=== PATIENT | male | born 1950 | race Caucasian/White ===

== ENCOUNTER 2016-11-07 22:21 | Emergency (ER) | payer MEDICARE, OTHER ==
[2016-11-07 22:33] VITALS: RESP 18
[2016-11-07 23:20] LABS: Basophils # (A) 0.1 k/uL (0-0.2); Basophils % (A) 1 %; CH 31.6; CHCM 33.7; Eosinophils # (A) 0.2 k/uL (0-0.7); Eosinophils % (A) 4 %; HCT 38.5 % (39.0-53.0); HDW 2.82; HGB 13.3 gm/dL (13.0-17.5); Luc # (Auto) 0.14; Luc % (Auto) 2; Lymphocytes # (A) 1.6 k/uL (1.0-4.8); Lymphocytes % (A) 24 %; MCH 32.6 pg (25.0-35.0); MCHC 34.5 g/dL (31.0-37.0); MCV 94.5 fL (80.0-100.0); Mean Platelet Volume 7.4; Monocytes # (A) 0.5 k/uL (0-1.0); Monocytes % (A) 8 %; Neutrophils # (A) 3.9 k/uL (1.3-7.7); Neutrophils % (A) 61 %; RBC 4.07 m/uL (4.30-5.90); RDW 14.2 % (11.5-15.5); WBC 6.5 k/uL (3.8-10.6); WBC (Perox) 5.94
[2016-11-07 23:29] LABS: Anion Gap 8 mmol/L; Blood Urea Nitrogen 27 mg/dL (9-20); Carbon Dioxide 27 mmol/L (22-30); Chloride 105 mmol/L (98-107); Glucose 95 mg/dL (74-99); Non-African American GFR(MDRD) 55 (>60 ml/min/1.73 sqM); Potassium 4.6 mmol/L (3.5-5.1); Sodium 140 mmol/L (137-145)
[2016-11-07 23:43] LABS: INR 3.7 (<1.1); Partial Thromboplastin Time 33.5 sec (22.0-30.0); Prothrombin Time 36.4 sec (9.0-12.0)
--- NOTE | 2016-11-07 23:48 | US ---
EXAM: US Duplex Right Lower Extremity Veins CLINICAL HISTORY: Reason: Pain TECHNIQUE: Real-time ultrasound scan of the veins of the right lower extremity with color Doppler flow, spectral waveform analysis and compression. COMPARISON: No relevant prior studies available. FINDINGS: Deep veins: Unremarkable. No DVT in the visualized common femoral, femoral, proximal deep femoral or popliteal veins. The veins are compressible with normal color flow and augmentation. Superficial veins: Unremarkable. No thrombus in the visualized great saphenous vein. IMPRESSION: No evidence of deep venous thrombosis.
--- NOTE | 2016-11-07 23:57 | ED ---
Extremity Problem HPI - General Chief complaint: Extremity Problem,Nontraumatic Stated complaint: R leg swelling Time Seen by Provider: 11/07/16 22:41 Source: patient, RN notes reviewed Mode of arrival: ambulatory Limitations: no limitations - History of Present Illness Initial comments: This a 66-year-old male presents emergency Department chief complaint right leg swelling. Patient states that he has chronic swelling of bilateral lower extremities states that his right leg is more swollen today. He states it is slightly achy. He has had a wound on the anterior hernandes region for the last week or so after she he cut his leg. States is no redness denies any pain associated. No bleeding. Patient's tetanus up-to-date. Patient was advised, emergency department because of increased swelling as concerns for possible DVT. Patient has no history DVT and currently takes Coumadin. - Related Data Home Medications Medication Instructions Recorded Confirmed Atorvastatin [Lipitor] 20 mg PO HS 10/01/13 11/07/16 Calcium Citrate/Vitamin D3 600 mg PO BID 10/01/13 11/07/16 [Calcium Citrate - Vit D3 Tab] Cholecalciferol [Vitamin D3] 2,000 unit PO DAILY 10/01/13 11/07/16 Furosemide [Lasix] 20 mg PO DAILY 10/01/13 11/07/16 Pantoprazole Sodium [Protonix] 40 mg PO BID 10/01/13 11/07/16 Warfarin [Coumadin] 5 mg PO SUTUTHSA 10/01/13 11/07/16 Warfarin [Coumadin] 2.5 mg PO MOWEFR 03/19/14 11/07/16 Ferrous Sulfate [Feosol] 325 mg PO BID 03/31/14 11/07/16 Metoprolol Succinate (ER) [Toprol 25 mg PO HS 11/07/16 11/07/16 Xl] Metoprolol Succinate (ER) [Toprol 50 mg PO DAILY 11/07/16 11/07/16 Xl] Allergies Allergy/AdvReac Type Severity Reaction Status Date / Time Penicillins Allergy Rash/Hives Verified 11/07/16 22:39 Review of Systems ROS Statement: Those systems with pertinent positive or pertinent negative responses have been documented in the HPI. ROS Other: All systems not noted in ROS Statement are negative. Past Medical History Past Medical History: GERD/Reflux, Hyperlipidemia, Osteoarthritis (OA), Renal Disease Additional Past Medical History / Comment(s): chronic swelling to bilat legs History of Any Multi-Drug Resistant Organisms: None Reported Past Surgical History: AICD, Bariatric Surgery, Cholecystectomy, Ear Surgery, Orthopedic Surgery Additional Past Surgical History / Comment(s): STATES HAD BILE DUCT LACERATED DURING CHOLECYSTECTOMY, eye surg. as a child, hx stomach stapling 1988, gastric bypass 10/2001, LOYD KNEES REPLACED, CURRENT PACEMAKER IS THIRD PACEMAKER PT HAS HAD, screw in right foot Past Anesthesia/Blood Transfusion Reactions: No Reported Reaction Type of Cardiac Device: Permanent Pacemaker Device Placement Date:: June 2013 @[facility] Past Psychological History: No Psychological Hx Reported Smoking Status: Never smoker Past Alcohol Use History: Occasional Past Drug Use History: None Reported - Past Family History Sister(s) Family Medical History: Cancer Mother Family Medical History: No Reported History General Exam Limitations: no limitations General appearance: alert, in no apparent distress Respiratory exam: Present: normal lung sounds bilaterally. Absent: respiratory distress, wheezes, rales, rhonchi, stridor Cardiovascular Exam: Present: regular rate, normal rhythm, normal heart sounds. Absent: systolic murmur, diastolic murmur, rubs, gallop, clicks GI/Abdominal exam: Present: normal bowel sounds Extremities exam: Present: other (Bilateral lower extremity edema noted 2+, greater on the right. There is a small 0.5 cm open wound to the right hernandes there is venous stasis changes to bilateral lower extremities pedal pulses are equal bilaterally) Skin exam: Present: warm, dry Course Vital Signs 11/07/16 11/07/16 22:28 23:47 Temperature 97.6 F 97.6 F Pulse Rate 62 62 Respiratory 18 18 Rate Blood Pressure 142/71 111/56 O2 Sat by Pulse 99 99 Oximetry Medical Decision Making - Medical Decision Making 66-year-old male present emergency for right leg swelling. There is no evidence of acute DVT. Patient does not have an elevated BNP. He does have a slight increase in creatinine from his normal baseline. Patient is currently on Lasix. Patient swelling is most likely related to his ambulation today as there was more than his usual. He does have chronic swelling of his lower extremities. Patient will follow with primary care physician return parameters were discussed. - Lab Data Result diagrams: 11/07/16 23:04 11/07/16 23:04 Lab Results 07/03/1611/07/16 11/07/16 Range/Units 23:04 23:04 23:04 WBC 6.5 (3.8-10.6) k/uL RBC 4.07 L (4.30-5.90) m/uL Hgb 13.3 (13.0-17.5) gm/dL Hct 38.5 L (39.0-53.0) % MCV 94.5 (80.0-100.0) fL MCH 32.6 (25.0-35.0) pg MCHC 34.5 (31.0-37.0) g/dL RDW 14.2 (11.5-15.5) % Plt Count 199 (150-450) k/uL Neutrophils % 61 % Lymphocytes % 24 % Monocytes % 8 % Eosinophils % 4 % Basophils % 1 % Neutrophils # 3.9 (1.3-7.7) k/uL Lymphocytes # 1.6 (1.0-4.8) k/uL Monocytes # 0.5 (0-1.0) k/uL Eosinophils # 0.2 (0-0.7) k/uL Basophils # 0.1 (0-0.2) k/uL PT (9.0-12.0) sec INR (<1.1) APTT (22.0-30.0) sec Sodium 140 (137-145) mmol/L Potassium 4.6 (3.5-5.1) mmol/L Chloride 105 (98-107) mmol/L Carbon Dioxide 27 (22-30) mmol/L Anion Gap 8 mmol/L BUN 27 H (9-20) mg/dL Creatinine 1.30 H (0.66-1.25) mg/dL Est GFR (MDRD) Af Amer >60 (>60 ml/min/1.73 sqM) Est GFR (MDRD) Non-Af 55 (>60 ml/min/1.73 sqM) Glucose 95 (74-99) mg/dL Calcium 8.0 L (8.4-10.2) mg/dL NT-Pro-B Natriuret Pep 605 pg/mL 11/07/16 Range/Units 23:04 WBC (3.8-10.6) k/uL RBC (4.30-5.90) m/uL Hgb (13.0-17.5) gm/dL Hct (39.0-53.0) % MCV (80.0-100.0) fL MCH (25.0-35.0) pg MCHC (31.0-37.0) g/dL RDW (11.5-15.5) % Plt Count (150-450) k/uL Neutrophils % % Lymphocytes % % Monocytes % % Eosinophils % % Basophils % % Neutrophils # (1.3-7.7) k/uL Lymphocytes # (1.0-4.8) k/uL Monocytes # (0-1.0) k/uL Eosinophils # (0-0.7) k/uL Basophils # (0-0.2) k/uL PT 36.4 H (9.0-12.0) sec INR 3.7 (<1.1) APTT 33.5 H (22.0-30.0) sec Sodium (137-145) mmol/L Potassium (3.5-5.1) mmol/L Chloride (98-107) mmol/L Carbon Dioxide (22-30) mmol/L Anion Gap mmol/L BUN (9-20) mg/dL Creatinine (0.66-1.25) mg/dL Est GFR (MDRD) Af Amer (>60 ml/min/1.73 sqM) Est GFR (MDRD) Non-Af (>60 ml/min/1.73 sqM) Glucose (74-99) mg/dL Calcium (8.4-10.2) mg/dL NT-Pro-B Natriuret Pep pg/mL Disposition Clinical Impression: Right leg swelling, Leg wound, right Disposition: HOME SELF-CARE Condition: Stable Instructions: Leg Edema (ED) Additional Instructions: Please return to the Emergency Department if symptoms worsen or any other concerns. Referrals: Noe Campbell MD [Primary Care Provider] - 1-2 days Time of Disposition: 00:12
[2016-11-08 00:30] VITALS: BP 111/54; PULSE 59; TEMP 97.3
== END 2016-11-08 00:29 | disposition home or self-care (01) ==
LOC: EC 22:21
DX: M79.89 Other specified soft tissue disorders (principal); S81.801A Unspecified open wound, right lower leg, initial encounter; I87.8 Other specified disorders of veins; R79.89 Other specified abnormal findings of blood chemistry; R60.0 Localized edema; N28.9 Disorder of kidney and ureter, unspecified; K21.9 Gastro-esophageal reflux disease without esophagitis; Z79.01 Long term (current) use of anticoagulants; Z79.899 Other long term (current) drug therapy; Z88.0 Allergy status to penicillin; Z98.890 Other specified postprocedural states; W45.8XXA Other foreign body or object entering through skin, initial encounter
CPT/HCPCS: 36415; 80048; 83880; 85025; 85610; 85730; 99284

== ENCOUNTER → 2017-01-09 | Outpatient (CLI) | payer MEDICARE, OTHER ==
[2017-01-09 09:17] LABS: Basophils % (A) 0 %; CHCM 32.6; Eosinophils # (A) 0.2 k/uL (0-0.7); Eosinophils % (A) 3 %; HDW 2.75; HGB 12.8 gm/dL (13.0-17.5); Luc # (Auto) 0.14; Luc % (Auto) 3; Lymphocytes % (A) 18 %; MCH 31.6 pg (25.0-35.0); MCV 98.5 fL (80.0-100.0); Mean Platelet Volume 7.8; Monocytes # (A) 0.4 k/uL (0-1.0); Monocytes % (A) 8 %; Neutrophils # (A) 3.7 k/uL (1.3-7.7); Neutrophils % (A) 68 %; RBC 4.06 m/uL (4.30-5.90); RDW 14.6 % (11.5-15.5); WBC 5.5 k/uL (3.8-10.6); WBC (Perox) 5.58
[2017-01-09 10:56] LABS: Erythrocyte Sedimentation Rate 7 mm/hr (0-15)
[2017-01-09 11:25] LABS: Prostate Specific Antigen 0.63 ng/mL (0.00-4.00)
[2017-01-09 11:34] LABS: Vitamin B12 325 pg/mL
[2017-01-09 11:48] LABS: ALT 31 U/L (21-72); AST 21 U/L (17-59); Alkaline Phosphatase 87 U/L (38-126); Anion Gap 6 mmol/L; Blood Urea Nitrogen 18 mg/dL (9-20); Carbon Dioxide 27 mmol/L (22-30); Chloride 108 mmol/L (98-107); Cholesterol 122 mg/dL (<200); Creatine Kinase 86 U/L (55-170); Glucose 96 mg/dL (74-99); HDL Cholesterol 59 mg/dL (40-60); Non-African American GFR(MDRD) >60 (>60 ml/min/1.73 sqM); Potassium 4.2 mmol/L (3.5-5.1); Sodium 141 mmol/L (137-145); Total Bilirubin 0.8 mg/dL (0.2-1.3); Total Protein 5.8 g/dL (6.3-8.2)
[2017-01-09 18:45] LABS: Hemoglobin A1C 5.6 % (4.2-6.1)
== END | disposition home or self-care (01) ==
LOC: LABWHC1 08:54
PROVIDERS: ATTEND Internal Medicine
DX: N40.0 Benign prostatic hyperplasia without lower urinary tract symptoms (principal); E87.8 Other disorders of electrolyte and fluid balance, not elsewhere classified; E78.5 Hyperlipidemia, unspecified; I10 Essential (primary) hypertension; E03.9 Hypothyroidism, unspecified; E55.9 Vitamin D deficiency, unspecified; E53.9 Vitamin B deficiency, unspecified; R00.1 Bradycardia, unspecified; M81.0 Age-related osteoporosis without current pathological fracture; E66.9 Obesity, unspecified
CPT/HCPCS: 36415; 80053; 80061; 82306; 82550; 82607; 83036; 84153; 84443; 85025; 85652; 86140

== ENCOUNTER → 2017-10-15 | Outpatient (CLI) | payer MEDICARE, OTHER ==
[2017-10-15 11:37] LABS: Calcium 8.2 mg/dL (8.4-10.2); Magnesium 2.1 mg/dL (1.6-2.3); Phosphorus 3.3 mg/dL (2.5-4.5); Potassium 4.3 mmol/L (3.5-5.1)
--- NOTE | 2017-10-15 13:16 | XR ---
EXAM TYPE: LUMBAR SPINE X RAY SERIES COMPARISON: NONE HISTORY: Pain TECHNIQUE: 3 views are submitted. FINDINGS: Alignment is anatomic. The pedicles are intact. The transverse processes are intact. There is no s pondylolysis or spondylolisthesis. Postsurgical changes in the upper abdomen. There is diffuse osteo penia and multilevel severe degenerative disc disease and facet arthropathy with most marked findings at L3-S1. IMPRESSION: 1. Severe multilevel degenerative disc disease with facet arthropathy.
== END | disposition home or self-care (01) ==
LOC: LABWHC1 10:28
PROVIDERS: ATTEND Internal Medicine
DX: M51.36 Other intervertebral disc degeneration, lumbar region (principal); M46.96 Unspecified inflammatory spondylopathy, lumbar region; M62.838 Other muscle spasm; Z98.890 Other specified postprocedural states
CPT/HCPCS: 36415; 72100; 80048; 82306; 83735; 84100

== ENCOUNTER → 2018-01-22 | Outpatient (CLI) | payer MEDICARE, OTHER ==
[2018-01-22 09:57] LABS: Basophils % (A) 0 %; Eosinophils # (A) 0.2 k/uL (0-0.7); Eosinophils % (A) 4 %; HCT 37.4 % (39.0-53.0); HGB 11.9 gm/dL (13.0-17.5); Hypochromasia Slight; Lymphocytes % (A) 21 %; MCH 30.3 pg (25.0-35.0); MCHC 31.7 g/dL (31.0-37.0); MCV 95.5 fL (80.0-100.0); Mean Platelet Volume 7.5; Monocytes # (A) 0.4 k/uL (0-1.0); Monocytes % (A) 8 %; Neutrophils % (A) 65 %; Platelet Count 170 k/uL (150-450); RBC 3.92 m/uL (4.30-5.90); RDW 14.4 % (11.5-15.5); WBC 4.7 k/uL (3.8-10.6)
[2018-01-22 10:40] LABS: ALT 32 U/L (21-72); AST 33 U/L (17-59); Albumin 2.9 g/dL (3.5-5.0); Alkaline Phosphatase 68 U/L (38-126); Anion Gap 4 mmol/L; Blood Urea Nitrogen 19 mg/dL (9-20); Calcium 7.6 mg/dL (8.4-10.2); Carbon Dioxide 30 mmol/L (22-30); Chloride 109 mmol/L (98-107); Cholesterol 116 mg/dL (<200); Creatine Kinase 162 U/L (55-170); Glucose 88 mg/dL (74-99); HDL Cholesterol 58 mg/dL (40-60); LDL Cholesterol,Calculated 49 mg/dL (0-99); Magnesium 2.1 mg/dL (1.6-2.3); Potassium 4.2 mmol/L (3.5-5.1); Sodium 143 mmol/L (137-145); Total Bilirubin 0.7 mg/dL (0.2-1.3); Total Protein 5.6 g/dL (6.3-8.2); Triglycerides 46 mg/dL (<150); Uric Acid 6.7 mg/dL (3.5-8.5)
[2018-01-22 11:33] LABS: C Reactive Protein <5.0 mg/L (<10.0)
[2018-01-22 12:01] LABS: Prostate Specific Antigen 0.67 ng/mL (0.00-4.00)
[2018-01-22 19:04] LABS: Hemoglobin A1C 5.7 % (4.0-6.0)
== END | disposition home or self-care (01) ==
LOC: LABWHC1 08:10
PROVIDERS: ATTEND Internal Medicine
DX: N40.0 Benign prostatic hyperplasia without lower urinary tract symptoms (principal); E55.9 Vitamin D deficiency, unspecified; E03.9 Hypothyroidism, unspecified; E78.5 Hyperlipidemia, unspecified; I10 Essential (primary) hypertension; M10.9 Gout, unspecified; E87.8 Other disorders of electrolyte and fluid balance, not elsewhere classified; R73.9 Hyperglycemia, unspecified
CPT/HCPCS: 36415; 80053; 80061; 82272; 82306; 82550; 83036; 83735; 84153; 84443; 84550; 85025; 86140

== ENCOUNTER → 2018-05-01 | Outpatient (CLI) | payer MEDICARE ==
[2018-05-01 12:37] LABS: Basophils % (A) 0 %; Eosinophils # (A) 0.2 k/uL (0-0.7); Eosinophils % (A) 3 %; HCT 41.7 % (39.0-53.0); HGB 13.3 gm/dL (13.0-17.5); Hypochromasia Slight; Lymphocytes % (A) 13 %; MCH 30.3 pg (25.0-35.0); MCHC 31.9 g/dL (31.0-37.0); MCV 95.2 fL (80.0-100.0); Mean Platelet Volume 7.2; Monocytes # (A) 0.4 k/uL (0-1.0); Monocytes % (A) 5 %; Neutrophils # (A) 6.1 k/uL (1.3-7.7); Neutrophils % (A) 77 %; Platelet Count 226 k/uL (150-450); RBC 4.39 m/uL (4.30-5.90); RDW 14.6 % (11.5-15.5); WBC 7.8 k/uL (3.8-10.6)
--- NOTE | 2018-05-01 13:00 | XR ---
EXAMINATION TYPE: XR chest 2V DATE OF EXAM: 05/01/2018 COMPARISON: 08/21/2011 TECHNIQUE: PA and lateral views submitted. HISTORY: Pain FINDINGS: No sizable pneumothorax. There is left lower lobe consolidation and small effusion. No overt failure. Heart is mildly prominent atherosclerotic change aorta. Cardiac device noted. Hypertrophic changes o f the vertebral column with degenerative change noted. IMPRESSION: 1. Left lower lobe infiltrate and small effusion.
--- NOTE | 2018-05-01 13:02 | XR ---
EXAMINATION TYPE: XR ribs LT DATE OF EXAM: 05/01/2018 COMPARISON: NONE HISTORY: Pain TECHNIQUE: 4 views submitted FINDINGS: Left lower lobe consolidation and small pleural effusion. There is a deformity involving th e anterior margin of the left 8th rib. Calcifications in the upper quadrant of the abdomen noted. IMPRESSION: 1. Deformity involving the anterolateral margin left eighth rib suspicious for fracture. 2. No sizable pneumothorax. 3. Left lower lobe consolidation and small pleural effusion.
== END | disposition home or self-care (01) ==
LOC: RADXRMAIN 11:30
PROVIDERS: ATTEND Internal Medicine
DX: J90 Pleural effusion, not elsewhere classified (principal); J18.1 Lobar pneumonia, unspecified organism; J12.9 Viral pneumonia, unspecified; J06.9 Acute upper respiratory infection, unspecified; R91.8 Other nonspecific abnormal finding of lung field; R52 Pain, unspecified
CPT/HCPCS: 36415; 71046; 85025

== ENCOUNTER → 2018-05-13 | Outpatient (CLI) | payer MEDICARE ==
--- NOTE | 2018-05-13 12:49 | XR ---
EXAMINATION TYPE: XR chest 2V DATE OF EXAM: 05/13/2018 COMPARISON: 05/01/2018 TECHNIQUE: PA and lateral views submitted. HISTORY: Follow-up pneumonia FINDINGS: Cardiac device is seen in the heart size stable. No pneumothorax. There is minimal subsegmental conso lidation small left effusion. The right lung is clear. No overt failure. Hypertrophic change of the s pine. Surgical clips in the abdomen. Rib deformity seen by previous rib series x-rays less well ident ified by standard chest x-ray. IMPRESSION: 1. There is interval near improvement of left lower lobe infiltrate and small effusion.
== END ==
LOC: RADXRMAIN 12:21
PROVIDERS: ATTEND Internal Medicine
DX: J90 Pleural effusion, not elsewhere classified (principal)
CPT/HCPCS: 71046

== ENCOUNTER → 2019-01-29 | Outpatient (CLI) | payer MEDICARE ==
[2019-01-29 08:06] LABS: Basophils % (A) 1 %; Eosinophils # (A) 0.2 k/uL (0-0.7); Eosinophils % (A) 4 %; HGB 10.9 gm/dL (13.0-17.5); Hypochromasia Slight; Lymphocytes % (A) 21 %; MCH 28.5 pg (25.0-35.0); MCHC 30.4 g/dL (31.0-37.0); MCV 93.8 fL (80.0-100.0); Mean Platelet Volume 6.8; Monocytes # (A) 0.4 k/uL (0-1.0); Monocytes % (A) 8 %; Neutrophils % (A) 64 %; Platelet Count 186 k/uL (150-450); RBC 3.84 m/uL (4.30-5.90); RDW 14.9 % (11.5-15.5); WBC 4.7 k/uL (3.8-10.6)
[2019-01-29 09:45] LABS: Erythrocyte Sedimentation Rate 8 mm/hr (0-15)
[2019-01-29 18:08] LABS: ALT 18 U/L (10-49); AST 26 U/L (14-35); African American GFR (CKD) 70.6 (60.0-200.0); Albumin/Globulin Ratio 1.94 (1.60-3.17); Alkaline Phosphatase 77 U/L (41-126); BUN/Creat Ratio 18.33 Ratio (12.00-20.00); C Reactive Protein <0.4 mg/dL (0.0-0.8); Calcium 7.9 mg/dL (8.7-10.3); Carbon Dioxide 28.4 mmol/L (21.6-31.8); Chloride 107 mmol/L (96-109); Chol/HDL Ratio 2.39; Cholesterol 122 mg/dL (0-200); Creatine Kinase 160 U/L (35-257); Globulin 1.8 g/dL (1.6-3.3); Glucose 96 mg/dL (70-110); Magnesium 2.3 mg/dL (1.5-2.4); Potassium 4.1 mmol/L (3.5-5.5); Sodium 143 mmol/L (135-145); Total Bilirubin 0.6 mg/dL (0.3-1.2); Total Protein 5.3 g/dL (6.2-8.2); Triglycerides <50.0 mg/dL (0.0-149.0)
== END | disposition home or self-care (01) ==
LOC: LABWHC1 07:06
PROVIDERS: ATTEND Internal Medicine
DX: D64.9 Anemia, unspecified (principal); N40.0 Benign prostatic hyperplasia without lower urinary tract symptoms; E78.5 Hyperlipidemia, unspecified; I10 Essential (primary) hypertension; E03.9 Hypothyroidism, unspecified; Z95.0 Presence of cardiac pacemaker
CPT/HCPCS: 36415; 80053; 80061; 82550; 83735; 84153; 84443; 85025; 85652; 86140

== ENCOUNTER → 2019-05-01 | Outpatient (CLI) | payer MEDICARE ==
[2019-05-01 13:22] LABS: Ionized Calcium 4.3 mg/dL (4.5-5.3)
== END | disposition home or self-care (01) ==
LOC: LABWHC1 12:34
PROVIDERS: ATTEND Internal Medicine Clinical Cardiac Electrophysiology
DX: E83.51 Hypocalcemia (principal)
CPT/HCPCS: 36415; 82306; 82310; 82330

== ENCOUNTER → 2019-05-08 | Outpatient (CLI) | payer MEDICARE ==
--- NOTE | 2019-05-08 12:46 | XR ---
EXAM TYPE: LUMBAR SPINE X RAY SERIES COMPARISON: 10/15/2017 HISTORY: Pain TECHNIQUE: 4 views are submitted. FINDINGS: Alignment is anatomic. The pedicles are intact. The transverse processes are intact. There is surg ical change in the abdomen. Diffuse osteopenia and severe multilevel degenerative disc disease and fa cet arthropathy at levels L3-S1. Mild to moderate changes at the remaining levels. Anterior hypertrop hic spurring at all levels. Vascular calcifications noted. IMPRESSION: 1. Multilevel severe degenerative disc disease and facet arthropathy. Correlate with MRI.
--- NOTE | 2019-05-08 12:47 | XR ---
EXAMINATION TYPE: XR thoracic spine complete DATE OF EXAM: 05/08/2019 COMPARISON: NONE HISTORY: Pain Alignment is anatomic. There is no compression deformities. Diffuse osteopenia. Cardiac device noted . There is hypertrophic spurs and moderate degenerative disc disease at all levels. No compression de formities. Significant degenerative disc disease lower cervical spine incidentally noted. Surgical ch alicia in the upper abdomen. IMPRESSION: 1. Diffuse osteopenia with multilevel moderate to severe degenerative disc disease. Flowing anterior osteophytes are seen which can be associated with hypertrophic degenerative changes or diffuse idiopa thic skeletal hyperostosis.
[2019-05-08 17:24] LABS: African American GFR (CKD) 58.2 (60.0-200.0); Anion Gap 9.9 mmol/L (4.00-12.00); BUN/Creat Ratio 26.43 Ratio (12.00-20.00); Calcium 8.2 mg/dL (8.7-10.3); Carbon Dioxide 29.1 mmol/L (21.6-31.8); Magnesium 2.3 mg/dL (1.5-2.4); Non-African American GFR(CKD) 50.2 (60.0-200.0); Potassium 4.1 mmol/L (3.5-5.5)
== END | disposition home or self-care (01) ==
LOC: LABWHC1 10:54
PROVIDERS: ATTEND Internal Medicine
DX: M51.36 Other intervertebral disc degeneration, lumbar region (principal); M46.96 Unspecified inflammatory spondylopathy, lumbar region; M51.34 Other intervertebral disc degeneration, thoracic region; M81.0 Age-related osteoporosis without current pathological fracture
CPT/HCPCS: 36415; 72072; 72110; 80048; 83735

== ENCOUNTER → 2019-08-04 | Outpatient (CLI) | payer MEDICARE ==
[2019-08-04 16:07] LABS: African American GFR (CKD) 70.1 (60.0-200.0); BUN/Creat Ratio 33.33 Ratio (12.00-20.00); Calcium 8.2 mg/dL (8.7-10.3); Carbon Dioxide 29.1 mmol/L (21.6-31.8); Chloride 102 mmol/L (96-109); Glucose 92 mg/dL (70-110); Non-African American GFR(CKD) 60.5 (60.0-200.0); Potassium 3.7 mmol/L (3.5-5.5); Sodium 143 mmol/L (135-145)
== END | disposition home or self-care (01) ==
LOC: LABWHC1 08:31
PROVIDERS: ATTEND Internal Medicine
DX: E87.8 Other disorders of electrolyte and fluid balance, not elsewhere classified (principal); N18.3 Chronic kidney disease, stage 3 (moderate); R82.4 Acetonuria
CPT/HCPCS: 36415; 80048; 82009

== ENCOUNTER → 2020-05-10 | Outpatient (CLI) | payer MEDICARE ==
[2020-05-10 12:44] LABS: Basophils % (A) 1 %; Eosinophils # (A) 0.1 k/uL (0-0.7); Eosinophils % (A) 2 %; HCT 36.7 % (39.0-53.0); HGB 11.7 gm/dL (13.0-17.5); Hypochromasia Slight; Lymphocytes # (A) 1.1 k/uL (1.0-4.8); Lymphocytes % (A) 21 %; MCH 28.9 pg (25.0-35.0); MCHC 31.9 g/dL (31.0-37.0); MCV 90.7 fL (80.0-100.0); Mean Platelet Volume 6.9; Monocytes # (A) 0.3 k/uL (0-1.0); Monocytes % (A) 6 %; Neutrophils # (A) 3.5 k/uL (1.3-7.7); Neutrophils % (A) 69 %; Platelet Count 254 k/uL (150-450); RBC 4.04 m/uL (4.30-5.90); RDW 15.3 % (11.5-15.5); WBC 5.2 k/uL (3.8-10.6)
[2020-05-10 14:06] LABS: Erythrocyte Sedimentation Rate 8 mm/hr (0-15)
[2020-05-10 21:21] LABS: ALT 23 U/L (10-49); AST 22 U/L (14-35); African American GFR (CKD) 77.3 (60.0-200.0); Albumin/Globulin Ratio 1.73 (1.60-3.17); Alkaline Phosphatase 75 U/L (41-126); BUN/Creat Ratio 24.55 Ratio (12.00-20.00); Calcium 8.2 mg/dL (8.7-10.3); Carbon Dioxide 30.2 mmol/L (21.6-31.8); Chloride 107 mmol/L (96-109); Globulin 2.2 g/dL (1.6-3.3); Glucose 91 mg/dL (70-110); Non-African American GFR(CKD) 66.7 (60.0-200.0); Potassium 4.2 mmol/L (3.5-5.5); Sodium 144 mmol/L (135-145); Total Bilirubin 0.7 mg/dL (0.3-1.2)
[2020-05-10 21:22] LABS: C Reactive Protein <0.4 mg/dL (0.0-0.8); Chol/HDL Ratio 2.79; Cholesterol 134 mg/dL (0-200); Creatine Kinase 83 U/L (35-257); LDL Cholesterol,Calculated 72.4 mg/dL (0.0-131.0); Magnesium 2.2 mg/dL (1.5-2.4); Prostate Specific Antigen 0.5 ng/mL (0.0-6.5)
== END | disposition home or self-care (01) ==
LOC: LABWHC1 10:28
PROVIDERS: ATTEND Internal Medicine Clinical Cardiac Electrophysiology
DX: Z00.00 Encounter for general adult medical examination without abnormal findings (principal); D64.9 Anemia, unspecified; I10 Essential (primary) hypertension; E03.9 Hypothyroidism, unspecified; N40.0 Benign prostatic hyperplasia without lower urinary tract symptoms; E78.5 Hyperlipidemia, unspecified; E87.2 Acidosis; E55.9 Vitamin D deficiency, unspecified
CPT/HCPCS: 36415; 80053; 80061; 82306; 82550; 83735; 84153; 84443; 85025; 85652; 86140

== ENCOUNTER → 2021-05-10 | Outpatient (CLI) | payer MEDICARE ==
[2021-05-10 15:16] LABS: Basophils # (A) 0.05 X 10*3/uL (0.00-0.10); Eosinophils # (A) 0.13 X 10*3/uL (0.04-0.35); Eosinophils % (A) 2.5 %; HCT 34.7 % (39.6-50.0); HGB 9.7 g/dL (13.0-17.0); Lymphocytes # (A) 1.22 X 10*3/uL (0.90-5.00); Lymphocytes % (A) 23.5 %; MCH 23.5 pg (27.0-32.0); MCV 84.2 fL (80.0-97.0); Mean Platelet Volume 9.2 fL (9.5-12.2); Monocytes # (A) 0.63 X 10*3/uL (0.20-1.00); Monocytes % (A) 12.1 %; Neutrophils # (A) 3.16 X 10*3/uL (1.80-7.70); Neutrophils % (A) 60.7 %; Platelet Count 293 X 10*3/uL (140-440); RBC 4.12 X 10*6/uL (4.40-5.60); RDW 16.8 % (11.5-14.5)
[2021-05-10 15:17] LABS: INR 2.01 (0.90-1.11); Prothrombin Time 21.4 sec (9.9-11.9)
[2021-05-10 15:20] LABS: ALT 17 U/L (10-49); AST 22 U/L (14-35); African American GFR (CKD) 80.3 (60.0-200.0); Albumin 3.9 g/dL (3.8-4.9); Albumin/Globulin Ratio 1.52 (1.60-3.17); Alkaline Phosphatase 86 U/L (41-126); BUN/Creat Ratio 20.47 Ratio (12.00-20.00); Blood Urea Nitrogen 21.7 mg/dL (9.0-27.0); Calcium 8.1 mg/dL (8.7-10.3); Chloride 104 mmol/L (96-109); Creatine Kinase 105 U/L (35-257); Globulin 2.5 g/dL (1.6-3.3); Glucose 100 mg/dL (70-110); Magnesium 2.4 mg/dL (1.5-2.4); Non-African American GFR(CKD) 69.3 (60.0-200.0); Phosphorus 3.7 mg/dL (2.4-5.1); Potassium 3.7 mmol/L (3.5-5.5); Sodium 143 mmol/L (135-145); Total Protein 6.4 g/dL (6.2-8.2); Uric Acid 6.7 mg/dL (3.7-8.7)
[2021-05-10 16:53] LABS: Erythrocyte Sedimentation Rate 21 mm/Hr (0-20)
[2021-05-10 17:21] LABS: C Reactive Protein <0.30 mg/dL (0.00-0.80)
[2021-05-10 20:04] LABS: Estimated Average Glucose 126
[2021-05-11 11:20] LABS: Microalbumin Creatinine Ratio <30 mg/g Creat (0-30)
== END | disposition home or self-care (01) ==
LOC: LABWHC1 10:19
PROVIDERS: ATTEND Internal Medicine
DX: Z00.00 Encounter for general adult medical examination without abnormal findings (principal); D64.9 Anemia, unspecified; N40.0 Benign prostatic hyperplasia without lower urinary tract symptoms; M10.9 Gout, unspecified; E78.5 Hyperlipidemia, unspecified; E11.65 Type 2 diabetes mellitus with hyperglycemia; E03.9 Hypothyroidism, unspecified; E55.9 Vitamin D deficiency, unspecified
CPT/HCPCS: 36415; 80053; 80061; 82043; 82550; 82570; 83036; 83721; 83735; 84100; 84153; 84443; 84550; 85025; 85610; 85652; 86140

== ENCOUNTER → 2021-05-11 | Outpatient (CLI) | payer MEDICARE | END | disposition home or self-care (01) | LOC: LABWHC1 09:21 | PROVIDERS: ATTEND Internal Medicine | DX: Z53.9 Procedure and treatment not carried out, unspecified reason (principal) ==

== ENCOUNTER → 2021-05-13 | Outpatient (CLI) | payer MEDICARE ==
[2021-05-13 15:36] LABS: % Iron Saturation 5.76 (15.00-50.00); Folate, Serum 10.4 ng/mL (4.40-31.00)
== END | disposition home or self-care (01) ==
LOC: LABWHC1 09:18
PROVIDERS: ATTEND Internal Medicine
DX: D64.9 Anemia, unspecified (principal); E53.8 Deficiency of other specified B group vitamins
CPT/HCPCS: 36415; 82272; 82607; 82746; 83540; 83550; 83921

== ENCOUNTER → 2021-08-31 | Outpatient (CLI) | payer MEDICARE ==
[2021-08-31 18:25] LABS: Basophils # (A) 0.05 X 10*3/uL (0.00-0.10); Basophils % (A) 0.9 %; Eosinophils # (A) 0.11 X 10*3/uL (0.04-0.35); Eosinophils % (A) 2.1 %; HCT 31.3 % (39.6-50.0); HGB 8.8 g/dL (13.0-17.0); Immature Grans, Automated 0.2 %; Lymphocytes # (A) 1.12 X 10*3/uL (0.90-5.00); MCH 23.4 pg (27.0-32.0); MCHC 28.1 g/dL (32.0-37.0); MCV 83.2 fL (80.0-97.0); Mean Platelet Volume 9.8 fL (9.5-12.2); Monocytes # (A) 0.48 X 10*3/uL (0.20-1.00); NRBC Per 100 WBC 0 /100 WBCS (0.0-0.0); Neutrophils # (A) 3.57 X 10*3/uL (1.80-7.70); Neutrophils % (A) 66.8 %; Platelet Count 356 X 10*3/uL (140-440); RBC 3.76 X 10*6/uL (4.40-5.60); RDW 18.7 % (11.5-14.5); WBC 5.34 X 10*3/uL (4.50-10.00)
[2021-08-31 22:58] LABS: Ferritin 22.7 ng/mL (22.0-322.0)
== END | disposition home or self-care (01) ==
LOC: LABWHC1 11:06
PROVIDERS: ATTEND Internal Medicine
DX: D50.9 Iron deficiency anemia, unspecified (principal); E53.8 Deficiency of other specified B group vitamins
CPT/HCPCS: 36415; 82728; 83540; 83550; 85025

== ENCOUNTER → 2022-01-09 | Outpatient (CLI) | payer MEDICARE ==
[2022-01-09 18:07] LABS: Basophils # (A) 0.04 X 10*3/uL (0.00-0.10); Basophils % (A) 0.8 %; Eosinophils # (A) 0.21 X 10*3/uL (0.04-0.35); Eosinophils % (A) 4.3 %; HCT 27.3 % (39.6-50.0); HGB 7.5 g/dL (13.0-17.0); Immature Grans, Automated 0.2 %; Lymphocytes # (A) 1.14 X 10*3/uL (0.90-5.00); Lymphocytes % (A) 23.3 %; MCH 22.1 pg (27.0-32.0); MCHC 27.5 g/dL (32.0-37.0); MCV 80.3 fL (80.0-97.0); Mean Platelet Volume 9.6 fL (9.5-12.2); Monocytes # (A) 0.57 X 10*3/uL (0.20-1.00); Monocytes % (A) 11.7 %; NRBC Per 100 WBC 0 /100 WBCS (0.0-0.0); Neutrophils # (A) 2.92 X 10*3/uL (1.80-7.70); Neutrophils % (A) 59.7 %; Platelet Count 278 X 10*3/uL (140-440); RDW 18.2 % (11.5-14.5); WBC 4.89 X 10*3/uL (4.50-10.00)
[2022-01-09 19:03] LABS: % Iron Saturation 3.89 (15.00-50.00); Ferritin 17.5 ng/mL (22.0-322.0)
== END | disposition home or self-care (01) ==
LOC: LABWHC1 11:18
PROVIDERS: ATTEND Internal Medicine
DX: D50.9 Iron deficiency anemia, unspecified (principal); E53.8 Deficiency of other specified B group vitamins
CPT/HCPCS: 36415; 82728; 83540; 83550; 85025

== ENCOUNTER 2022-01-17 06:23 | Day surgery (SDC) | payer MEDICARE ==
[2022-01-13 16:03] VITALS: BMI 35.9
[~2022-01-17 06:23] MED LIST: LACTATED RINGERS 1,000 ML IV SCH
[2022-01-17 06:59] VITALS: TEMP 96.8
[2022-01-17] MEDS ORDERED: PROPOFOL 10 MG/ML 20 ML VIAL IV ONE (07:50)
[2022-01-17] MEDS ORDERED: LIDOCAINE 2% INJ 20 MG/ML (2 ML VIAL) ONE (07:50)
--- NOTE | 2022-01-17 08:21 | P.PCN ---
Date of Procedure: 01/17/22 Procedure(s) Performed: Brief history: Patient is a pleasant 68-year-old white male scheduled for an elective upper endoscopy as well as colonoscopy as a part of evaluation of Iron deficiency anemia and positive cologuard. Patient has prior history of gastric bypass surgery several years ago. He has history of A. fib and currently on Coumadin Procedure performed: Esophagogastroduodenoscopy biopsy Colonoscopy Preoperative diagnosis: Iron deficiency anemia Positive cologuard Anesthesia: MAC Procedure: After informed consent was obtained from the patient was brought into the endoscopy unit and IV sedation was administered by anesthesia under continuous monitoring. Initially upper endoscopy was done. The Olympus GF 160 video endoscope was inserted inserted into the mouth and esophagus intubated without any difficulty and was gradually advanced into the gastric pouch and the remainder anastomosis. The scope was advanced into the afferent and efferent loop that appeared normal and biopsies were done from the jejunum. Scope was withdrawn into the gastric pouch that appeared normal.. The GE junction was located at 40 cm to the incisors. There was long segment of Ospina's esophagus extending from 36-40 cm from the incisors and biopsies were done from this area. There was a 5 mm nodule noted in the Ospina's esophagus at 38 cm from the incisors which was also biopsied. Rest of the esophagus appeared normal. Patient tolerated the procedure well. At this time the patient continued to remain sedation. Initial digital rectal examination was normal. Olympus CF 160 video colonoscope was then inserted into the rectum and gradually advanced to the cecum without any difficulty. Careful examination was performed as the scope was gradually being withdrawn. The prep was excellent. The cecum, ascending colon, transverse colon, descending colon, sigmoid colon and rectum appeared normal. Scattered sigmoid diverticulosis seen. Retroflexion was performed in the rectum and no lesions were noted. Patient tolerated the procedure well. Impression: 1. Upper endoscopy revealed evidence of gastric bypass surgery, small hiatal hernia and Ospina's esophagus 2. Colonoscopy was within normal limits with no evidence of colorectal neoplasia Recommendations: Findings of this examination were discussed with the patient as well as his family. He was advised to follow with the biopsy results. He will continue with iron supplements. He will be seen in office in 3-4 weeks.
[2022-01-17 08:47] VITALS: BP 134/58; PULSE 49; RESP 20
== END 2022-01-17 09:07 ==
LOC: ORWHC2ENDO 06:23
PROVIDERS: ATTEND Internal Medicine Gastroenterology
DX: K31.A0 Gastric intestinal metaplasia, unspecified (principal); K29.50 Unspecified chronic gastritis without bleeding; K44.9 Diaphragmatic hernia without obstruction or gangrene; R19.5 Other fecal abnormalities; D50.9 Iron deficiency anemia, unspecified; I10 Essential (primary) hypertension; E78.5 Hyperlipidemia, unspecified; K21.9 Gastro-esophageal reflux disease without esophagitis; Z88.0 Allergy status to penicillin; Z79.899 Other long term (current) drug therapy; Z98.84 Bariatric surgery status
CPT/HCPCS: 88305; 43239; J2704; J2001; G0121; 45378

== ENCOUNTER → 2022-01-25 | Outpatient (CLI) | payer MEDICARE ==
[2022-01-25 22:48] LABS: Basophils # (A) 0.06 X 10*3/uL (0.00-0.10); Basophils % (A) 0.8 %; Eosinophils # (A) 0.24 X 10*3/uL (0.04-0.35); HCT 29.2 % (39.6-50.0); HGB 8.3 g/dL (13.0-17.0); Immature Grans, Automated 0.3 %; Lymphocytes # (A) 2.21 X 10*3/uL (0.90-5.00); Lymphocytes % (A) 27.9 %; MCH 22.7 pg (27.0-32.0); MCHC 28.4 g/dL (32.0-37.0); Mean Platelet Volume 9.7 fL (9.5-12.2); Monocytes # (A) 1.19 X 10*3/uL (0.20-1.00); NRBC Per 100 WBC 0 /100 WBCS (0.0-0.0); Platelet Count 320 X 10*3/uL (140-440); RBC 3.65 X 10*6/uL (4.40-5.60); RDW 19.4 % (11.5-14.5); WBC 7.92 X 10*3/uL (4.50-10.00)
== END | disposition home or self-care (01) ==
LOC: LABWHC1 15:19
PROVIDERS: ATTEND Nurse Practitioner Family
DX: D50.9 Iron deficiency anemia, unspecified (principal)
CPT/HCPCS: 36415; 85025

== ENCOUNTER → 2022-02-27 | Outpatient (CLI) | payer MEDICARE ==
[2022-02-27 14:25] LABS: HCT 37.1 % (39.6-50.0); HGB 10.9 g/dL (13.0-17.0); MCH 25.9 pg (27.0-32.0); MCHC 29.4 g/dL (32.0-37.0); MCV 88.1 fL (80.0-97.0); Mean Platelet Volume 10.5 fL (9.5-12.2); NRBC Per 100 WBC 0 /100 WBCS (0.0-0.0); Platelet Count 253 X 10*3/uL (140-440); RBC 4.21 X 10*6/uL (4.40-5.60); RDW 24.6 % (11.5-14.5); WBC 4.76 X 10*3/uL (4.50-10.00)
[2022-02-27 15:20] LABS: % Iron Saturation 26.61 (15.00-50.00); Basophils # (A) 0.03 X 10*3/uL (0.00-0.10); Basophils % (A) 0.6 %; Eosinophils % (A) 4.2 %; Ferritin 42.6 ng/mL (22.0-322.0); Immature Grans, Automated 0.4 %; Lymphocytes # (A) 1.31 X 10*3/uL (0.90-5.00); Lymphocytes % (A) 27.5 %; Monocytes # (A) 0.55 X 10*3/uL (0.20-1.00); Monocytes % (A) 11.6 %; Neutrophils # (A) 2.65 X 10*3/uL (1.80-7.70); Neutrophils % (A) 55.7 %
[2022-02-27 15:21] LABS: Acanthocytes 2+; Anisocytosis (M) 2+; Elliptocytes 2+; Macrocytosis (M) 2+
== END | disposition home or self-care (01) ==
LOC: LABWHC1 09:52
PROVIDERS: ATTEND Internal Medicine
DX: D50.9 Iron deficiency anemia, unspecified (principal)
CPT/HCPCS: 36415; 82728; 83540; 83550; 85025

== ENCOUNTER → 2022-10-02 | Outpatient (CLI) | payer MEDICARE ==
[2022-10-02 16:02] LABS: ALT 19 U/L; AST 23 U/L; Albumin 3.7 d/dL; Albumin/Globulin Ratio 1.61 Ratio; Alkaline Phosphatase 89 U/L; BUN/Creat Ratio 20.75 Ratio; Blood Urea Nitrogen 24.9 mg/dL; C Reactive Protein <0.30 mg/dL; Calcium 8.5 mg/dL; Chloride 105 mmol/L; Chol/HDL Ratio 2.37 Ratio; Creatine Kinase 158 U/L; Globulin 2.3 d/dL; Glucose 93 mg/dL; Magnesium 2.5 mg/dL; Phosphorus 3.7 mg/dL; Sodium 144 mmol/L; Total Bilirubin 0.9 mg/dL; VLDL Calculation 8.82 mg/dL
[2022-10-02 16:05] LABS: Basophils # (A) 0.05 X 10*3/uL; Basophils % (A) 0.9 %; Eosinophils # (A) 0.18 X 10*3/uL; Eosinophils % (A) 3.2 %; HCT 39.7 %; HGB 12.3 d/dL; Lymphocytes # (A) 0.99 X 10*3/uL; Lymphocytes % (A) 17.4 %; MCH 30.6 pg; MCV 98.8 FL; Mean Platelet Volume 10.2 FL; Monocytes # (A) 0.52 X 10*3/uL; Monocytes % (A) 9.2 %; NRBC Per 100 WBC 0 X 10*3/uL; Neutrophils # (A) 3.92 X 10*3/uL; Neutrophils % (A) 68.9 %; Platelet Count 200 X 10*3/uL; RBC 4.02 X 10*6/uL; RDW 14.3 %; WBC 5.68 X 10*3/uL
[2022-10-03 08:41] LABS: Erythrocyte Sedimentation Rate 6 mm/Hr
== END | disposition home or self-care (01) ==
LOC: LABWHC1 09:46
PROVIDERS: ATTEND Internal Medicine
DX: Z00.00 Encounter for general adult medical examination without abnormal findings (principal); I10 Essential (primary) hypertension; D64.9 Anemia, unspecified; E78.5 Hyperlipidemia, unspecified; E66.9 Obesity, unspecified; E55.9 Vitamin D deficiency, unspecified; M19.90 Unspecified osteoarthritis, unspecified site
CPT/HCPCS: 36415; 80053; 80061; 82550; 83735; 84100; 84153; 84443; 84550; 85025; 85652; 86140

== ENCOUNTER → 2023-10-10 | Outpatient (CLI) | payer MEDICARE ==
[2023-10-10 18:09] LABS: Basophils # (A) 0.06 X 10*3/uL (0.00-0.10); Basophils % (A) 1.2 %; Eosinophils # (A) 0.19 X 10*3/uL (0.04-0.35); Eosinophils % (A) 3.7 %; HCT 41.5 % (39.6-50.0); Lymphocytes # (A) 1.33 X 10*3/uL (0.90-5.00); Lymphocytes % (A) 26.2 %; MCH 30.7 pg (27.0-32.0); MCHC 31.3 g/dL (32.0-37.0); MCV 98.1 FL (80.0-97.0); Monocytes # (A) 0.61 X 10*3/uL (0.20-1.00); NRBC Per 100 WBC 0 X 10*3/uL (0.00-0.01); Neutrophils # (A) 2.87 X 10*3/uL (1.80-7.70); Neutrophils % (A) 56.7 %; Platelet Count 210 X 10*3/uL (140-440); RBC 4.23 X 10*6/uL (4.40-5.60); RDW 14.3 % (11.5-14.5); WBC 5.07 X 10*3/uL (4.50-10.00)
[2023-10-10 18:27] LABS: Erythrocyte Sedimentation Rate 5 mm/Hr (0-20)
[2023-10-10 18:42] LABS: INR 2.27 sec (0.93-1.11); Prothrombin Time 23.2 sec (9.9-11.9)
[2023-10-10 18:48] LABS: C Reactive Protein <0.30 mg/dL (0.00-0.80); Creatine Kinase 74 U/L (35-257)
[2023-10-10 18:49] LABS: % Iron Saturation 29.39 (15.00-50.00); ALT 17 U/L (10-49); AST 20 U/L (14-35); Albumin 3.7 g/dL (3.8-4.9); Albumin/Globulin Ratio 1.61 Ratio (1.60-3.17); Alkaline Phosphatase 112 U/L (41-126); BUN/Creat Ratio 18.08 Ratio (12.00-20.00); Blood Urea Nitrogen 21.7 mg/dL (9.0-27.0); Calcium 8.3 mg/dL (8.7-10.3); Carbon Dioxide 28.1 mmol/L (21.6-31.8); Chloride 107 mmol/L (96-109); Chol/HDL Ratio 2.64 Ratio; Globulin 2.3 g/dL (1.6-3.3); Glucose 100 mg/dL (70-110); Iron 97 UG/DL (65-175); Magnesium 2.2 mg/dL (1.5-2.4); Phosphorus 3.8 mg/dL (2.4-5.1); Potassium 4.3 mmol/L (3.5-5.5); Prostate Specific Antigen 0.72 ng/mL (0.000-6.500); Sodium 147 mmol/L (135-145); Total Bilirubin 0.9 mg/dL (0.3-1.2); Total Iron Binding Capacity 330 UG/DL (228-460); Uric Acid 7.5 mg/dL (3.7-8.7); VLDL Calculation 15.84 mg/dL (5.00-40.00)
[2023-10-10 19:12] LABS: Reticulocyte % 1.12 % (0.10-1.80)
[2023-10-10 19:51] LABS: Microalbumin Creatinine Ratio <9 mg/g Cr (0-30)
== END | disposition home or self-care (01) ==
LOC: LABWHC1 12:06
PROVIDERS: ATTEND Internal Medicine
DX: Z00.00 Encounter for general adult medical examination without abnormal findings (principal); D64.9 Anemia, unspecified; N40.0 Benign prostatic hyperplasia without lower urinary tract symptoms; I10 Essential (primary) hypertension; E87.6 Hypokalemia; E78.5 Hyperlipidemia, unspecified; E66.9 Obesity, unspecified; E55.9 Vitamin D deficiency, unspecified; K21.9 Gastro-esophageal reflux disease without esophagitis; D68.59 Other primary thrombophilia; M10.9 Gout, unspecified; M19.90 Unspecified osteoarthritis, unspecified site
CPT/HCPCS: 36415; 80053; 80061; 82043; 82306; 82550; 82570; 82728; 83540; 83550; 83735; 84100; 84153; 84443; 84550; 85025; 85045; 85610; 85652; 86140

== ENCOUNTER 2023-11-25 10:33 | Inpatient (IN) | payer MEDICARE ==
--- NOTE | 2023-11-25 11:33 | ED ---
General Adult HPI - General Chief complaint: Weakness Stated complaint: Dizziness Time Seen by Provider: 11/25/23 11:12 Source: patient, RN notes reviewed Mode of arrival: ambulatory Limitations: no limitations - History of Present Illness Initial comments: 73-year-old male presents to the emergency department for evaluation of chills and not feeling well. He reports that symptoms started on Sunday. He states that he has been having episodes where he gets chills and feels overall weak. He states that during this time he does not feel like he cannot walk far due to the symptoms. He denies any other associated symptoms including chest pain, shortness of breath, cough, congestion, urinary symptoms. He does have a history of venous insufficiency and has some abrasions to the legs. - Related Data Home Medications Medication Instructions Recorded Confirmed Atorvastatin [Lipitor] 20 mg PO HS 10/01/13 11/25/23 Pantoprazole Sodium [Protonix] 40 mg PO AC-BRKFST 10/01/13 11/25/23 Warfarin [Coumadin] 5 mg PO MOWETHSA@209910/01/13 11/25/23 Metoprolol Succinate (ER) [Toprol 50 mg PO BID 11/07/16 11/25/23 Xl] Furosemide [Lasix] 40 mg PO DAILY 11/25/23 11/25/23 Latanoprost [Latanoprost 0.005%] 1 drop LEFT EYE HS 11/25/23 11/25/23 Warfarin [Coumadin] 2.5 mg PO SUTUFR@209911/25/23 11/25/23 Allergies Allergy/AdvReac Type Severity Reaction Status Date / Time Penicillins Allergy Rash/Hives Verified 11/25/23 16:01 Review of Systems ROS Statement: Those systems with pertinent positive or pertinent negative responses have been documented in the HPI. ROS Other: All systems not noted in ROS Statement are negative. Past Medical History Past Medical History: Atrial Fibrillation, GERD/Reflux, Hypertension, Osteoarthritis (OA), Renal Disease Additional Past Medical History / Comment(s): chronic swelling to bilat legs, varicose veins, positive cologuard, anemia History of Any Multi-Drug Resistant Organisms: None Reported Past Surgical History: Bariatric Surgery, Cholecystectomy, Ear Surgery, Joint Replacement, Orthopedic Surgery, Pacemaker Additional Past Surgical History / Comment(s): STATES HAD BILE DUCT LACERATED DURING CHOLECYSTECTOMY, eye surg. as a child, hx stomach stapling 1988, gastric bypass 10/2001, LOYD KNEES REPLACED, ORIF rt foot Past Anesthesia/Blood Transfusion Reactions: No Reported Reaction Type of Cardiac Device: Permanent Pacemaker Device Placement Date:: Cuffed and Wanted, 06/2013 Past Psychological History: No Psychological Hx Reported Smoking Status: Never smoker Past Alcohol Use History: None Reported Past Drug Use History: None Reported - Past Family History Sister(s) Family Medical History: Cancer Mother Family Medical History: No Reported History General Exam Limitations: no limitations General appearance: alert, in no apparent distress Head exam: Present: atraumatic, normocephalic, normal inspection Eye exam: Present: normal appearance, PERRL, EOMI. Absent: scleral icterus, conjunctival injection, periorbital swelling ENT exam: Present: normal exam, mucous membranes moist Neck exam: Present: normal inspection. Absent: tenderness, meningismus, lymphadenopathy Respiratory exam: Present: normal lung sounds bilaterally. Absent: respiratory distress, wheezes, rales, rhonchi, stridor Cardiovascular Exam: Present: regular rate, normal rhythm, normal heart sounds. Absent: systolic murmur, diastolic murmur, rubs, gallop, clicks GI/Abdominal exam: Present: soft, normal bowel sounds. Absent: distended, tenderness, guarding, rebound, rigid Extremities exam: Present: full ROM, normal capillary refill, other (Lower extremity edema with evidence of venous insufficiency). Absent: tenderness, pedal edema, joint swelling, calf tenderness Neurological exam: Present: alert, oriented X3, CN II-XII intact Psychiatric exam: Present: normal affect, normal mood Skin exam: Present: warm, dry, normal color. Absent: rash Course Vital Signs 11/25/23 11/25/23 11/25/23 11:02 11:46 12:00 Temperature 102.3 F H Pulse Rate 72 67 58 L Respiratory 18 18 18 Rate Blood Pressure 79/49 92/48 92/48 O2 Sat by Pulse 93 L 96 Oximetry 11/25/23 11/25/23 11/25/23 12:52 13:00 14:00 Temperature 98 F Pulse Rate 56 L 64 55 L Respiratory 18 20 24 Rate Blood Pressure 93/41 93/41 85/33 O2 Sat by Pulse 95 Oximetry 11/25/23 11/25/23 11/25/23 15:00 16:00 18:00 Temperature 98.3 F Pulse Rate 50 L 49 L 58 L Respiratory 19 18 18 Rate Blood Pressure 94/45 94/46 100/52 O2 Sat by Pulse 98 Oximetry 11/25/23 11/25/23 20:17 22:19 Temperature Pulse Rate 55 L 52 L Respiratory 16 16 Rate Blood Pressure 96/54 108/54 O2 Sat by Pulse 99 98 Oximetry Medical Decision Making - Medical Decision Making Was pt. sent in by a medical professional or institution (, PA, SQUAD LEADER, urgent care, hospital, or usp...) When possible be specific @ -No Did you speak to anyone other than the patient for history (EMS, parent, family, police, friend...)? What history was obtained from this source @ -No Did you review nursing and triage notes (agree or disagree)? Why? @ -I reviewed and agree with nursing and triage notes Were old charts reviewed (outside hosp., previous admission, EMS record, old EKG, old radiological studies, urgent care reports/EKG's, usp records)? Report findings @ -No old charts were reviewed Differential Diagnosis (chest pain, altered mental status, abdominal pain women, abdominal pain men, vaginal bleeding, weakness, fever, dyspnea, syncope, headache, dizziness, GI bleed, back pain, seizure, CVA, palpatations, mental health, musculoskeletal)? @ -Differential Fever: Pneumonia, viral URI, endocarditis, myocarditis, pericarditis, otitis, sinusitis, peritonsillar Abscess, retropharyngeal Abscess, epiglottitis, peritonitis, appendicitis, Mirian cystitis, diverticulitis, hepatitis, colitis, UTI, PID, TOA, pyelonephritis, prostatitis, epididymitis, meningitis, encephalitis, pulmonary embolism, CVA, thyroid storm, pancreatitis, adrenal crisis, cavernous sinus thrombosis, this is not meant to be an all-inclusive list. EKG interpreted by me (3pts min.). @ -EKG at 1112 shows sinus rhythm with supraventricular with a rate of 70. 180, QRS 146, QTQTc [id number] X-rays interpreted by me (1pt min.). @ -Chest x-ray reveals no acute process CT interpreted by me (1pt min.). @ -None done U/S interpreted by me (1pt. min.). @ -None done What testing was considered but not performed or refused? (CT, X-rays, U/S, labs)? Why? @ -None What meds were considered but not given or refused? Why? @ -None Did you discuss the management of the patient with other professionals (demetri medrano i.e. , PA, SQUAD LEADER, lab, RT, psych nurse, social welfare research worker, curve saw operator, teacher, chief credit officer, rn case management)? Give summary @ -Case discussed with Dr. Campbell who is accepting of the admission Was smoking cessation discussed for >3mins.? @ -No Was critical care preformed (if so, how long)? @ -No Were there social determinants of health that impacted care today? How? (Homelessness, low income, unemployed, alcoholism, drug addiction, transportation, low edu. Level, literacy, decrease access to med. care, retirement, rehab)? @ -No Was there de-escalation of care discussed even if they declined (Discuss DNR or withdrawal of care, Hospice)? DNR status @ -No What co-morbidities impacted this encounter? (DM, HTN, Smoking, COPD, CAD, Cancer, CVA, ARF, Chemo, Hep., AIDS, mental health diagnosis, sleep apnea, morbid obesity)? @ -None Was patient admitted / discharged? Hospital course, mention meds given and route, prescriptions, significant lab abnormalities, going to OR and other pertinent info. @ -Admitted. Patient presented to the emergency department for evaluation of fever and generalized weakness. Laboratory studies obtained significant for mild leukocytosis at 13.7.Patient has INR of 3.1, he is on warfarin. Creatinine 1.28, lactic acid 1.3; UA shows no evidence of infectious process, negative for COVID, influenza, RSV. Chest x-ray revealing no acute infiltrate. Patient was fluid resuscitated. He was started on broad-spectrum antibiotics for meeting SIRS criteria, no source identified. Case was discussed with patient's primary care provider, Dr. Campbell who is accepting of the admission, requesting troponin, BNP. Patient is understanding agreeable with admission plan. Case discussed with Dr. Rivera. Undiagnosed new problem with uncertain prognosis? @ -No Drug Therapy requiring intensive monitoring for toxicity (Heparin, Nitro, Insulin, Cardizem)? @ -No Were any procedures done? @ -No Diagnosis/symptom? @ -Fever, hypotension, weakness Acute, or Chronic, or Acute on Chronic? @ -Acute Uncomplicated (without systemic symptoms) or Complicated (systemic symptoms)? @ -Complicated Side effects of treatment? @ -No Exacerbation, Progression, or Severe Exacerbation? @ -No Poses a threat to life or bodily function? How? (Chest pain, USA, MD, pneumonia, PE, COPD, DKA, ARF, appy, cholecystitis, CVA, Diverticulitis, Homicidal, Suicidal, threat to staff... and all critical care pts) @ -No - Lab Data Result diagrams: 11/25/23 11:44 11/25/23 11:44 Lab Results 11/25/23 11/25/23 11/25/23 Range/Units 11:44 11:44 11:44 WBC 13.7 H (3.8-10.6) k/uL RBC 3.62 L (4.30-5.90) m/uL Hgb 11.5 L (13.0-17.5) gm/dL Hct 35.2 L (39.0-53.0) % MCV 97.3 (80.0-100.0) fL MCH 31.7 (25.0-35.0) pg MCHC 32.6 (31.0-37.0) g/dL RDW 14.1 (11.5-15.5) % Plt Count 224 (150-450) k/uL MPV 7.3 Neutrophils % 94 % Lymphocytes % 3 % Monocytes % 3 % Eosinophils % 0 % Basophils % 0 % Neutrophils # 12.8 H (1.3-7.7) k/uL Lymphocytes # 0.4 L (1.0-4.8) k/uL Monocytes # 0.4 (0-1.0) k/uL Eosinophils # 0.1 (0-0.7) k/uL Basophils # 0.0 (0-0.2) k/uL Hypochromasia Slight PT 30.5 H (10.0-12.5) sec INR 3.1 H (<1.2) APTT 28.3 (22.0-30.0) sec Sodium 140 (137-145) mmol/L Potassium 3.6 (3.5-5.1) mmol/L Chloride 108 H (98-107) mmol/L Carbon Dioxide 25 (22-30) mmol/L Anion Gap 7 mmol/L BUN 31 H (9-20) mg/dL Creatinine 1.28 H (0.66-1.25) mg/dL Est GFR (CKD-EPI)AfAm 63 (>60 ml/min/1.73 sqM) Est GFR (CKD-EPI)NonAf 54 (>60 ml/min/1.73 sqM) Glucose 98 (74-99) mg/dL Plasma Lactic Acid Kenji (0.7-2.0) mmol/L Calcium 7.3 L (8.4-10.2) mg/dL Total Bilirubin 1.2 (0.2-1.3) mg/dL AST 58 (17-59) U/L ALT 32 (4-49) U/L Alkaline Phosphatase 82 (38-126) U/L Total Protein 5.4 L (6.3-8.2) g/dL Albumin 2.9 L (3.5-5.0) g/dL Urine Color Urine Appearance (Clear) Urine pH (5.0-8.0) Ur Specific Murchison (1.001-1.035) Urine Protein (Negative) Urine Glucose (UA) (Negative) Urine Ketones (Negative) Urine Blood (Negative) Urine Nitrite (Negative) Urine Bilirubin (Negative) Urine Urobilinogen (<2.0) mg/dL Ur Leukocyte Esterase (Negative) Influenza Type A (PCR) (Not Detectd) Influenza Type B (PCR) (Not Detectd) RSV (PCR) (Not Detectd) SARS-CoV-2 (PCR) (Not Detectd) 11/25/23 11/25/23 11/25/23 Range/Units 11:44 11:44 11:44 WBC (3.8-10.6) k/uL RBC (4.30-5.90) m/uL Hgb (13.0-17.5) gm/dL Hct (39.0-53.0) % MCV (80.0-100.0) fL MCH (25.0-35.0) pg MCHC (31.0-37.0) g/dL RDW (11.5-15.5) % Plt Count (150-450) k/uL MPV Neutrophils % % Lymphocytes % % Monocytes % % Eosinophils % % Basophils % % Neutrophils # (1.3-7.7) k/uL Lymphocytes # (1.0-4.8) k/uL Monocytes # (0-1.0) k/uL Eosinophils # (0-0.7) k/uL Basophils # (0-0.2) k/uL Hypochromasia PT (10.0-12.5) sec INR (<1.2) APTT (22.0-30.0) sec Sodium (137-145) mmol/L Potassium (3.5-5.1) mmol/L Chloride (98-107) mmol/L Carbon Dioxide (22-30) mmol/L Anion Gap mmol/L BUN (9-20) mg/dL Creatinine (0.66-1.25) mg/dL Est GFR (CKD-EPI)AfAm (>60 ml/min/1.73 sqM) Est GFR (CKD-EPI)NonAf (>60 ml/min/1.73 sqM) Glucose (74-99) mg/dL Plasma Lactic Acid Kenji 1.3 (0.7-2.0) mmol/L Calcium (8.4-10.2) mg/dL Total Bilirubin (0.2-1.3) mg/dL AST (17-59) U/L ALT (4-49) U/L Alkaline Phosphatase (38-126) U/L Total Protein (6.3-8.2) g/dL Albumin (3.5-5.0) g/dL Urine Color Yellow Urine Appearance Clear (Clear) Urine pH 5.0 (5.0-8.0) Ur Specific Murchison 1.013 (1.001-1.035) Urine Protein Negative (Negative) Urine Glucose (UA) Negative (Negative) Urine Ketones Negative (Negative) Urine Blood Negative (Negative) Urine Nitrite Negative (Negative) Urine Bilirubin Negative (Negative) Urine Urobilinogen <2.0 (<2.0) mg/dL Ur Leukocyte Esterase Negative (Negative) Influenza Type A (PCR) Not Detected (Not Detectd) Influenza Type B (PCR) Not Detected (Not Detectd) RSV (PCR) Not Detected (Not Detectd) SARS-CoV-2 (PCR) Not Detected (Not Detectd) Disposition Clinical Impression: Fever, Leukocytosis, Cellulitis Disposition: ADMITTED IP TO THIS HOSP Condition: Stable Is patient prescribed a controlled substance at d/c from ED?: No
[2023-11-25] MEDS: ACETAMINOPHEN TAB 500 MG TAB PO STA (11:47)
[2023-11-25] MEDS: SODIUM CHLORIDE 0.9% 1,000 ML IV SCH (11:49)
[2023-11-25] MEDS: SODIUM CHLORIDE 0.9% 1,000 ML IV ONE (11:49)
[2023-11-25] MEDS: SODIUM CHLORIDE 0.9% 500 ML 500 ML IV SCH (11:53)
[2023-11-25 12:04] LABS: Basophils % (A) 0 %; Eosinophils # (A) 0.1 k/uL (0-0.7); Eosinophils % (A) 0 %; HCT 35.2 % (39.0-53.0); HGB 11.5 gm/dL (13.0-17.5); Hypochromasia Slight; Lymphocytes # (A) 0.4 k/uL (1.0-4.8); Lymphocytes % (A) 3 %; MCH 31.7 pg (25.0-35.0); MCHC 32.6 g/dL (31.0-37.0); MCV 97.3 fL (80.0-100.0); Mean Platelet Volume 7.3; Monocytes # (A) 0.4 k/uL (0-1.0); Monocytes % (A) 3 %; Neutrophils # (A) 12.8 k/uL (1.3-7.7); Neutrophils % (A) 94 %; Platelet Count 224 k/uL (150-450); RBC 3.62 m/uL (4.30-5.90); RDW 14.1 % (11.5-15.5); WBC 13.7 k/uL (3.8-10.6)
[2023-11-25] MEDS ORDERED: VANCOMYCIN IV PER PHARMACY 1 EACH MISC MISCELLANE PRN (12:11)
[2023-11-25 12:14] LABS: ALT 32 U/L (4-49); AST 58 U/L (17-59); African American GFR (CKD) 63 (>60 ml/min/1.73 sqM); Albumin 2.9 g/dL (3.5-5.0); Alkaline Phosphatase 82 U/L (38-126); Anion Gap 7 mmol/L; Blood Urea Nitrogen 31 mg/dL (9-20); Calcium 7.3 mg/dL (8.4-10.2); Carbon Dioxide 25 mmol/L (22-30); Chloride 108 mmol/L (98-107); Glucose 98 mg/dL (74-99); Non-African American GFR(CKD) 54 (>60 ml/min/1.73 sqM); Potassium 3.6 mmol/L (3.5-5.1); Sodium 140 mmol/L (137-145); Total Bilirubin 1.2 mg/dL (0.2-1.3); Total Protein 5.4 g/dL (6.3-8.2)
--- NOTE | 2023-11-25 12:14 | XR ---
EXAMINATION TYPE: XR chest 2V DATE OF EXAM: 11/25/2023 COMPARISON: 05/13/2018 HISTORY: Fever TECHNIQUE: Frontal and lateral views of the chest are obtained. FINDINGS: There is no focal air space opacity, pleural effusion, or pneumothorax seen. The cardiac silhouette size is within normal limits. There is a 2-lead cardiac pacemaker unchanged in position. The osseous structures are intact. IMPRESSION: No acute cardiopulmonary process.
[2023-11-25 12:19] LABS: INR 3.1 (<1.2); Partial Thromboplastin Time 28.3 sec (22.0-30.0); Prothrombin Time 30.5 sec (10.0-12.5)
[2023-11-25 13:52] LABS: Appearance,Urine Clear (Clear); Bilirubin,Urine Negative (Negative); Blood,Urine Negative (Negative); Color,Urine Yellow; Glucose,Urine (UA) Negative (Negative); Ketones,Urine Negative (Negative); Leukocyte Esterase,Urine Negative (Negative); Nitrite,Urine Negative (Negative); Protein,Urine Negative (Negative); Specific Gravity,Urine 1.013 (1.001-1.035); Urobilinogen,Urine <2.0 mg/dL (<2.0)
[2023-11-25] MEDS: VANCOMYCIN 2,000 MG in SODIUM CHLORIDE 0.9% 500 ML 500 ML IVPB ONE (14:35)
[2023-11-25] MEDS ORDERED: MORPHINE SULFATE 4 MG/ML SYRINGE IV PRN (16:44)
[2023-11-25] MEDS ORDERED: NALOXONE 0.4 MG/ML 1 ML VIAL IV PRN (16:44)
[2023-11-25] MEDS ORDERED: ACETAMINOPHEN TAB 325 MG TAB PO PRN (16:44)
--- NOTE | 2023-11-25 18:20 | P.HPIM ---
History of Present Illness H&P Date: 11/25/23 Chief Complaint: Leukocytosis with fever and chills at home and tachycardia and short of shabnam History and physical Date of service 11/25/[address] Campbell. Patient presented to the ER with a chief complaint: Temperature at home more than 100 which found also in the ER associated with feeling chills as well as feeling tachycardic and short of breath. This is dura tion of 2 days. He was in the graduation of his granddaughter and he started to clean up the yard and he felt tachycardic and short of breath and weak. History of present illness: 73 years old white male has been experience short of breath as well as tachycardia and feels weakness which started 2 days ago and become progressive came to the emergency room found that he had leukocytosis, also his blood pressure 79/49 with a pulse of 72 and temperature 102.3 and patient experienced chills and generalized weakness. In the ER they did a chest x-ray which was negative, he had a pacemaker with the underlying bradycardia and hypotension and the only medication can contribute to the blood pressure is he is on metoprolol succinate 50 mg XL twice a day and he supported with IV fluid and with the chills and underlying sepsis related blood culture, urine analysis was negative and a chest x-ray was negative. Subsequently they called me to admit the patient and meanwhile with the underlying sepsis I did request some order for procalcitonin and proBNP and troponin which is not available yet. I did also ask for consultation with the infectious disease with the unknown etiology of leukocytosis and the hypotension as well as the cardiology and his primary clinical cytogeneticist scientist is Dr. Martines with the pacemaker in the left infraclavicular needs to be reviewed as well as possibility of underlying arrhythmias not well-controlled causing him to affect his ejection fraction. Patient has history of medical illness 1. He had morbid obesity underwent to surgery for bariatric first was sleeve and the second was bypass and he lost large amount of weight and he was more than 480 here again some of the weight but he is much better than he used to be 2. Hyperlipidemia 3. Left infraclavicular pacemaker placed by Dr. Martines with the underlying sick sinus syndrome and heart block. 4. The obesity stage II 5. Significant varicose vein of the lower extremities with the status dermatitis of the lower ankle with pigmentation and trace edema from the varicose veins. Allergy penicillin Medication reconciled and he was on metoprolol succinate 50 mg twice a day because of his hypotension week decrease it to 25 mg twice a day until seen by cardiology. On review of system Cardiovascular feeling short of breath and more of heart discomfort questionable paroxysmal fibrillation and associated with hypotension and generalized weakness He stated that he is breathing okay but was fast with tachypnea No GI symptoms of nausea vomiting diarrhea or constipation No symptoms of dysuria or hematuria. Patient on anticoagulant Coumadin and he is pro time and INR checked on this admission INR of 3.1. Neuropsychiatry patient stable, no following attacks no syncopal episode. Rest of the blood noncontributory. On the physical exam: Patient conscious alert oriented able to give me a history Vital signs on admission indicating that his temperature 102.3 and blood pressure 79/49 heart rate of 72. With the IV fluid and antibiotic given in the ER his blood pressure gradually improved to 93/41 and his heart rate was in the 50s on the monitor and repeat temperature was normal 98 F oral with the oxygen saturation 95% on room air. Head was normocephalic atraumatic pupil and equal with the underlying trauma and childhood of the left cornea Oropharynx he had upper plate and lower partials Hearing is normal. Neck was supple no JVD no thyromegaly no lymphadenopathy trachea midline Chest increased anteroposterior diameter and no wheezes no rhonchi's. Heart pully pacing with skipping with the pacemaker rhythm no acute abnormalities except for bradycardia And hypotension Abdomen multiple surgery, positive bowel sounds, no tenderness in 4 quadrant. Extremities he had significant varicose veins, stasis dermatitis of the lower legs and positive pulses with good perfusion he had a scar on the right leg for total arthroplasty on the knee. Psychiatry stable normal mood Neurologically stable no history of CVA. Assessment: 1. Leukocytosis pyrexia with chills and hypotension underlying sepsis of unknown etiology considered 2. Left infraclavicular pacemaker consider abnormalities with the batteries 3. Hypotension with unknown etiology could be secondary to sepsis. 4. Obesity grade 2 5. Hyperlipidemia. Plan: Patient started on antibiotic in the ER, will obtain procalcitonin, and NT proBNP, and troponin 1. Repeat CBC and BMP in the morning. Oh obtain consult with infectious disease with the sepsis of unknown etiology Dr. Tse Also obtain the echocardiogram to these with Doppler in a.m. and a cardiology consultation. Patient should be admitted to telemetry through the floor on the [facility] for close monitoring Past Medical History Past Medical History: Atrial Fibrillation, GERD/Reflux, Hypertension, Osteoarthritis (OA), Renal Disease Additional Past Medical History / Comment(s): chronic swelling to bilat legs, varicose veins, positive cologuard, anemia History of Any Multi-Drug Resistant Organisms: None Reported Past Surgical History: Bariatric Surgery, Cholecystectomy, Ear Surgery, Joint Replacement, Orthopedic Surgery, Pacemaker Additional Past Surgical History / Comment(s): STATES HAD BILE DUCT LACERATED DURING CHOLECYSTECTOMY, eye surg. as a child, hx stomach stapling 1988, gastric bypass 10/2001, LOYD KNEES REPLACED, ORIF rt foot Past Anesthesia/Blood Transfusion Reactions: No Reported Reaction Type of Cardiac Device: Permanent Pacemaker Device Placement Date:: Voxxter, 06/2013 Past Psychological History: No Psychological Hx Reported Smoking Status: Never smoker Past Alcohol Use History: None Reported Past Drug Use History: None Reported - Past Family History Sister(s) Family Medical History: Cancer Mother Family Medical History: No Reported History Medications and Allergies Home Medications Medication Instructions Recorded Confirmed Type Atorvastatin [Lipitor] 20 mg PO HS 10/01/13 11/25/23 History Pantoprazole Sodium [Protonix] 40 mg PO AC-BRKFST 10/01/13 11/25/23 History Warfarin [Coumadin] 5 mg PO MOWETHSA@209910/01/13 11/25/23 History Metoprolol Succinate (ER) [Toprol 50 mg PO BID 11/07/16 11/25/23 History Xl] Furosemide [Lasix] 40 mg PO DAILY 11/25/23 11/25/23 History Latanoprost [Latanoprost 0.005%] 1 drop LEFT EYE HS 11/25/23 11/25/23 History Warfarin [Coumadin] 2.5 mg PO SUTUFR@209911/25/23 11/25/23 History Allergies Allergy/AdvReac Type Severity Reaction Status Date / Time Penicillins Allergy Rash/Hives Verified 11/25/23 16:01 Physical Exam Vitals: Vital Signs Temp Pulse Resp BP Pulse Ox 11/25/23 16:00 49 L 18 94/46 11/25/23 15:00 50 L 19 94/45 11/25/23 14:00 98 F 55 L 24 85/33 11/25/23 13:00 64 20 93/41 11/25/23 12:52 56 L 18 93/41 95 11/25/23 12:00 58 L 18 92/48 11/25/23 11:46 67 18 92/48 96 11/25/23 11:02 102.3 F H 72 18 79/49 93 L Intake and Output 11/25/23 11/25/23 11/25/23 06:59 14:59 22:59 Other: Weight 103.419 kg Results CBC & Chem 7: 11/25/23 11:44 11/25/23 11:44 Labs: Abnormal Lab Results - Last 24 Hours (Table) 11/25/23 11/25/23 11/25/23 Range/Units 11:44 11:44 11:44 WBC 13.7 H (3.8-10.6) k/uL RBC 3.62 L (4.30-5.90) m/uL Hgb 11.5 L (13.0-17.5) gm/dL Hct 35.2 L (39.0-53.0) % Neutrophils # 12.8 H (1.3-7.7) k/uL Lymphocytes # 0.4 L (1.0-4.8) k/uL PT 30.5 H (10.0-12.5) sec INR 3.1 H (<1.2) Chloride 108 H (98-107) mmol/L BUN 31 H (9-20) mg/dL Creatinine 1.28 H (0.66-1.25) mg/dL Calcium 7.3 L (8.4-10.2) mg/dL Total Protein 5.4 L (6.3-8.2) g/dL Albumin 2.9 L (3.5-5.0) g/dL
[2023-11-25] MEDS: METOPROLOL SUCCINATE (ER) 25 MG TAB.ER.24H PO SCH (20:56)
[2023-11-25] MEDS ORDERED: METOPROLOL SUCCINATE (ER) 50 MG TAB.ER.24H PO SCH (21:00)
[2023-11-25] MEDS: WARFARIN 2.5 MG TAB PO ONE (22:26)
[2023-11-25] MEDS: ATORVASTATIN 20 MG TAB PO SCH (22:26)
[2023-11-25] MEDS: LATANOPROST 0.005% OPHTH DROPS 2.5 ML BTL LEFT EYE SCH (22:28)
[2023-11-26] MEDS: PANTOPRAZOLE 40 MG TABLET PO SCH (06:14)
[2023-11-26 06:41] LABS: INR 2.5 (<1.2); Prothrombin Time 25.1 sec (10.0-12.5)
[2023-11-26 07:09] LABS: African American GFR (CKD) 61 (>60 ml/min/1.73 sqM); Non-African American GFR(CKD) 53 (>60 ml/min/1.73 sqM)
[2023-11-26] MEDS: VANCOMYCIN 1,750 MG in SODIUM CHLORIDE 0.9% 500 ML 500 ML IVPB SCH (09:06)
--- NOTE | 2023-11-26 10:00 | P.CRDCN ---
History of Present Illness Consult date: 11/26/23 History of present illness: HISTORY OF PRESENTING ILLNESS 23-year-old male with past medical history of paroxysmal atrial fibrillation, left bundle branch block, permanent pacemaker previously known to Dr. Martines. Presented to the hospital because of concerns of fever and chills. On admission he had evidence of mild leukocytosis of WBC 13,000, low blood pressure 79/49, fever with temperature of 102. Patient urine did not show any signs of infection. Chest x-ray does not show any signs of pulmonary congestion. Creatinine is 1.3 which is slightly above the baseline of 1.0. His troponin was negative, BNP was elevated at 4000. His ECG showed sinus rhythm with left bundle branch block morphology. Patient denies any symptoms of chest pain chest pressure or shortness of breath. He reports that his fever chills and leg cramps have resolved. REVIEW OF SYSTEMS 14 point review of system is negative except what is mentioned above in HPI. PHYSICAL EXAMINATION Vital signs reviewed. Head: Normocephalic. Eyes: Sclerae nonicteric. Neck: Brisk carotid upstroke, no jugular venous distention. Lungs: Clear to auscultation. Heart: Irregular pulse,, S1-S2, no S3, systolic murmur appreciated Abdomen: Soft nontender, positive bowel sounds. Extremities: Chronic 2+ bilateral lower extremity edema with skin changes Neuro: Alert, oritented, no focal deficits. Detailed neuro exam was not performed. ASSESSMENT Paroxysmal atrial fibrillation, currently sinus rhythm S/p permanent pacemaker Chronic bilateral lower extremity swelling Systolic murmur Fever and sepsis PLAN He is on warfarin, metoprolol and Lasix at home. Lasix is held. Metoprolol was reduced to 25 mg twice daily. I agree with these changes Continue IV fluids. Monitor renal function and chest x-ray. Monitor for signs of any pulmonary congestion Obtain pacemaker interrogation Obtain echocardiogram Further recommendations to follow For his lower extremity edema patient would benefit from lower extremity pneumatic compression devices which can be established as an outpatient. Carlos Deleon MD, FACC, RPVI Thank you for allowing [facility] to participate in is patient's care. Feel free to reach out in case of any followup questions. Past Medical History Past Medical History: Atrial Fibrillation, GERD/Reflux, Hypertension, Osteoarthritis (OA), Renal Disease Additional Past Medical History / Comment(s): chronic swelling to bilat legs, varicose veins, positive cologuard, anemia History of Any Multi-Drug Resistant Organisms: None Reported Past Surgical History: Bariatric Surgery, Cholecystectomy, Ear Surgery, Joint Replacement, Orthopedic Surgery, Pacemaker Additional Past Surgical History / Comment(s): STATES HAD BILE DUCT LACERATED DURING CHOLECYSTECTOMY, eye surg. as a child, hx stomach stapling 1988, gastric bypass 10/2001, LOYD KNEES REPLACED, ORIF rt foot Past Anesthesia/Blood Transfusion Reactions: No Reported Reaction Type of Cardiac Device: Permanent Pacemaker Device Placement Date:: [employer], 06/2013 Past Psychological History: No Psychological Hx Reported Smoking Status: Never smoker Past Alcohol Use History: None Reported Past Drug Use History: None Reported - Past Family History Sister(s) Family Medical History: Cancer Mother Family Medical History: No Reported History Medications and Allergies Home Medications Medication Instructions Recorded Confirmed Type Atorvastatin [Lipitor] 20 mg PO 10/01/13 11/25/23 History Pantoprazole Sodium [Protonix] 40 mg PO AC-BRKFST 10/01/13 11/25/23 History Warfarin [Coumadin] 5 mg PO MOWETHSA@209910/01/13 11/25/23 History Metoprolol Succinate (ER) [Toprol 50 mg PO BID 11/07/16 11/25/23 History Xl] Furosemide [Lasix] 40 mg PO DAILY 11/25/23 11/25/23 History Latanoprost [Latanoprost 0.005%] 1 drop LEFT EYE HS 11/25/23 11/25/23 History Warfarin [Coumadin] 2.5 mg PO SUTUFR@209911/25/23 11/25/23 History Allergies Allergy/AdvReac Type Severity Reaction Status Date / Time Penicillins Allergy Rash/Hives Verified 11/25/23 16:01 Physical Exam Vitals: Vital Signs Temp Pulse Pulse Resp BP BP Pulse Ox 11/26/23 08:00 97.7 F 52 L 18 104/67 98 11/26/23 03:20 97.6 F 63 18 96/48 97 11/26/23 01:04 97.7 F 54 L 18 124/60 98 11/26/23 00:25 52 L 16 95/62 99 11/25/23 22:19 52 L 16 108/54 98 11/25/23 20:17 55 L 16 96/54 99 11/25/23 18:00 98.3 F 58 L 18 100/52 98 11/25/23 16:00 49 L 18 94/46 11/25/23 15:00 50 L 19 94/45 11/25/23 14:00 98 F 55 L 24 85/33 11/25/23 13:00 64 20 93/41 11/25/23 12:52 56 L 18 93/41 95 11/25/23 12:00 58 L 18 92/48 11/25/23 11:46 67 18 92/48 96 11/25/23 11:02 102.3 F H 72 18 79/49 93 L Intake and Output 11/25/23 11/26/23 11/26/23 22:59 06:59 14:59 Intake Total 360 Balance 360 Intake: Oral 360 Other: Voiding Method Toilet Weight 108.7 kg Results 11/25/23 11:44 11/26/23 06:06 Cardiac Enzymes 11/25/23 11/25/23 Range/Units 11:44 17:14 AST 58 (17-59) U/L Troponin I 0.021 (0.000-0.034) ng/mL Coagulation 11/25/23 11/26/23 Range/Units 11:44 06:06 PT 30.5 H 25.1 H (10.0-12.5) sec APTT 28.3 (22.0-30.0) sec CBC 11/25/23 Range/Units 11:44 WBC 13.7 H (3.8-10.6) k/uL RBC 3.62 L (4.30-5.90) m/uL Hgb 11.5 L (13.0-17.5) gm/dL Hct 35.2 L (39.0-53.0) % Plt Count 224 (150-450) k/uL Comprehensive Metabolic Panel 11/25/23 11/26/23 Range/Units 11:44 06:06 Sodium 140 (137-145) mmol/L Potassium 3.6 (3.5-5.1) mmol/L Chloride 108 H (98-107) mmol/L Carbon Dioxide 25 (22-30) mmol/L BUN 31 H (9-20) mg/dL Creatinine 1.28 H 1.31 H (0.66-1.25) mg/dL Glucose 98 (74-99) mg/dL Calcium 7.3 L (8.4-10.2) mg/dL AST 58 (17-59) U/L ALT 32 (4-49) U/L Alkaline Phosphatase 82 (38-126) U/L Total Protein 5.4 L (6.3-8.2) g/dL Albumin 2.9 L (3.5-5.0) g/dL Current Medications Generic Name Dose Route Start Last Admin Trade Name Freq PRN Reason Stop Dose Admin Acetaminophen 650 mg 11/25/23 16:44 Acetaminophen Tab 325 Mg Tab PO Q6HR PRN Mild Pain or Fever > 100.5 Atorvastatin Calcium 20 mg 11/25/23 21:00 11/25/23 22:26 Atorvastatin 20 Mg Tab PO 20 mg HS SID Administration Furosemide 40 mg 11/26/23 10:00 Furosemide 40 Mg Tab PO DAILY SID Sodium Chloride 1,000 mls @ 130 mls/hr 11/25/23 11:30 11/26/23 06:27 Saline 0.9% IV 130 mls/hr .Q7H42M SID Administration Vancomycin HCl 1,750 mg/ 500 mls @ 167 mls/hr 11/26/23 08:00 11/26/23 09:06 Sodium Chloride IVPB 167 mls/hr Q18H SID Administration Latanoprost 1 drops 11/25/23 21:00 11/25/23 22:28 Latanoprost 0.005% Ophth Drops 2.5 Ml Btl LEFT EYE 1 drops HS SID Administration Metoprolol Succinate 25 mg 11/25/23 21:00 11/26/23 09:06 Metoprolol Succinate (Er) 25 Mg Tab.Er.24h PO 25 mg BID SID Administration Miscellaneous Information 1 each 11/25/23 21:00 Warfarin Per Pharmacy MISCELLANE DIRECTED PRN PHARMACY DOSING WARFARIN Protocol Morphine Sulfate 4 mg 11/25/23 16:44 Morphine Sulfate 4 Mg/Ml Syringe IV Q4HR PRN Severe Pain (Scale 7 to 10) Naloxone HCl 0.2 mg 11/25/23 16:44 Naloxone 0.4 Mg/Ml 1 Ml Vial IV Q2M PRN Opioid Reversal Pantoprazole Sodium 40 mg 11/26/23 07:30 11/26/23 06:14 Pantoprazole 40 Mg Tablet PO 40 mg AC-BRKFST SID Administration Warfarin Sodium 5 mg 11/26/23 21:00 Warfarin 5 Mg Tab PO 11/26/23 21:01 ONCE@2100 ONE Intake and Output 11/25/23 11/26/23 11/26/23 22:59 06:59 14:59 Intake Total 360 Balance 360 Intake: Oral 360 Other: Voiding Method Toilet Weight 108.7 kg 11/25/23 11:44 11/26/23 06:06
[2023-11-26] MEDS: FUROSEMIDE 40 MG TAB PO SCH (10:39)
--- NOTE | 2023-11-26 12:31 | P.CONS ---
History of Present Illness - Reason for Consult Consult date: 11/26/23 SIRS Requesting physician: Kanika Jones - Chief Complaint Weakness fever and chills x 2 days - History of Present Illness Patient is a 73-year-old male with a past medical his significant for hypertension osteoarthritis reflux atrial fibrillation bilateral lower extremity varicose veins and venous stasis dermatitis presenting to the hospital for evaluation of fever and chills and not feeling well symptom has been going on since Sunday night patient did have some headache but no photophobia no URI symptoms no chest pain shortness of breath or cough no nausea no vomiting no abdominal pain no diarrhea no urinary symptoms patient did have a chronic swelling of the right lower extremity denies any worsening swelling redness or any open wound or drainage he did have small bumps to the right leg that has dried up with the symptoms the patient was evaluated on presentation to the hospital he did have a fever of 102 F patient was not tachycardic mildly hyp otensive but not hypoxic and no need for supplemental oxygen he did have a white count of 13.7 with a left shift creatinine 1.2 8 repeat is 1.31 procalcitonin 1.45 urine has been negative influenza RSV COVID testing was negative patient did have a chest x-ray no acute cardiopulmonary disease process ED received a dose of Rocephin in the ER has been started on vancomycin infectious disease was consulted for further management of antibiotic therapy Review of Systems Positive point and negatives has been mentioned in the HPI, complete review of systems was performed and all other systems are negative Past Medical History Past Medical History: Atrial Fibrillation, GERD/Reflux, Hypertension, Osteoarthritis (OA), Renal Disease Additional Past Medical History / Comment(s): chronic swelling to bilat legs, varicose veins, positive cologuard, anemia History of Any Multi-Drug Resistant Organisms: None Reported Past Surgical History: Bariatric Surgery, Cholecystectomy, Ear Surgery, Joint Replacement, Orthopedic Surgery, Pacemaker Additional Past Surgical History / Comment(s): STATES HAD BILE DUCT LACERATED DURING CHOLECYSTECTOMY, eye surg. as a child, hx stomach stapling 1988, gastric bypass 10/2001, LOYD KNEES REPLACED, ORIF rt foot Past Anesthesia/Blood Transfusion Reactions: No Reported Reaction Type of Cardiac Device: Permanent Pacemaker Device Placement Date:: [employer], 06/2013 Past Psychological History: No Psychological Hx Reported Smoking Status: Never smoker Past Alcohol Use History: None Reported Past Drug Use History: None Reported - Past Family History Sister(s) Family Medical History: Cancer Mother Family Medical History: No Reported History Medications and Allergies Home Medications Medication Instructions Recorded Confirmed Type Atorvastatin [Lipitor] 20 mg PO HS 10/01/13 11/25/23 History Pantoprazole Sodium [Protonix] 40 mg PO AC-BRKFST 10/01/13 11/25/23 History Warfarin [Coumadin] 5 mg PO MOWETHSA@2100 10/01/13 11/25/23 History Metoprolol Succinate (ER) [Toprol 50 mg PO BID 11/07/16 11/25/23 History Xl] Furosemide [Lasix] 40 mg PO DAILY 11/25/23 11/25/23 History Latanoprost [Latanoprost 0.005%] 1 drop LEFT EYE HS 11/25/23 11/25/23 History Warfarin [Coumadin] 2.5 mg PO SUTUFR@2100 11/25/23 11/25/23 History Allergies Allergy/AdvReac Type Severity Reaction Status Date / Time Penicillins Allergy Rash/Hives Verified 11/25/23 16:01 Physical Exam Vitals: Vital Signs Temp Pulse Pulse Resp BP BP Pulse Ox 11/26/23 08:00 97.7 F 52 L 18 104/67 98 11/26/23 03:20 97.6 F 63 18 96/48 97 11/26/23 01:04 97.7 F 54 L 18 124/60 98 11/26/23 00:25 52 L 16 95/62 99 11/25/23 22:19 52 L 16 108/54 98 11/25/23 20:17 55 L 16 96/54 99 11/25/23 18:00 98.3 F 58 L 18 100/52 98 11/25/23 16:00 49 L 18 94/46 11/25/23 15:00 50 L 19 94/45 11/25/23 14:00 98 F 55 L 24 85/33 11/25/23 13:00 64 20 93/41 11/25/23 12:52 56 L 18 93/41 95 11/25/23 12:00 58 L 18 92/48 11/25/23 11:46 67 18 92/48 96 11/25/23 11:02 102.3 F H 72 18 79/49 93 L Intake and Output 11/25/23 11/26/23 11/26/23 22:59 06:59 14:59 Intake Total 360 Balance 360 Intake: Oral 360 Other: Voiding Method Toilet Weight 108.7 kg GENERAL DESCRIPTION: Elderly male lying in bed, no distress. No tachypnea or accessory muscle of respiration use. HEENT: Shows Pallor , no scleral icterus. Oral mucous membrane is dry. No pharyngeal erythema or thrush NECK: Trachea central, no thyromegaly. LUNGS: Unlabored breathing. Clear to auscultation anteriorly. No wheeze or crackle. HEART: S1, S2, regular rate and rhythm. No loud murmur ABDOMEN: Soft, no tenderness , guarding or rigidity, no organomegaly EXTREMITIES: Bilateral lower extremity swelling with varicosities and venous stasis dermatitis right leg is slightly more swollen and warm to touch SKIN: No rash, no masses palpable. NEUROLOGICAL: The patient is awake, alert, oriented x3, mood and affect normal. Results CBC & Chem 7: 11/25/23 11:44 11/26/23 06:06 Labs: Abnormal Lab Results - Last 24 Hours (Table) 11/25/23 11/25/23 11/25/23 Range/Units 11:44 11:44 11:44 WBC 13.7 H (3.8-10.6) k/uL RBC 3.62 L (4.30-5.90) m/uL Hgb 11.5 L (13.0-17.5) gm/dL Hct 35.2 L (39.0-53.0) % Neutrophils # 12.8 H (1.3-7.7) k/uL Lymphocytes # 0.4 L (1.0-4.8) k/uL PT 30.5 H (10.0-12.5) sec INR 3.1 H (<1.2) Chloride 108 H (98-107) mmol/L BUN 31 H (9-20) mg/dL Creatinine 1.28 H (0.66-1.25) mg/dL Calcium 7.3 L (8.4-10.2) mg/dL Total Protein 5.4 L (6.3-8.2) g/dL Albumin 2.9 L (3.5-5.0) g/dL Procalcitonin (0.02-0.50) ng/mL 11/25/23 11/26/23 11/26/23 Range/Units 17:14 06:06 06:06 WBC (3.8-10.6) k/uL RBC (4.30-5.90) m/uL Hgb (13.0-17.5) gm/dL Hct (39.0-53.0) % Neutrophils # (1.3-7.7) k/uL Lymphocytes # (1.0-4.8) k/uL PT 25.1 H (10.0-12.5) sec INR 2.5 H (<1.2) Chloride (98-107) mmol/L BUN (9-20) mg/dL Creatinine 1.31 H (0.66-1.25) mg/dL Calcium (8.4-10.2) mg/dL Total Protein (6.3-8.2) g/dL Albumin (3.5-5.0) g/dL Procalcitonin 1.45 H (0.02-0.50) ng/mL Assessment and Plan (1) Sepsis Current Visit: Yes Status: Acute Code(s): A41.9 - SEPSIS, UNSPECIFIED ORGAN ISM SNOMED Code(s): 45835995 (2) Cellulitis of right leg Current Visit: Yes Status: Acute Code(s): L03.115 - CELLULITIS OF RIGHT LOWER LIMB SNOMED Code(s): 27395910963105401 (3) Penicillin allergy Current Visit: Yes Status: Acute Code(s): Z88.0 - ALLERGY STATUS TO PENICILLIN SNOMED Code(s): 07512118 Plan: 1patient presented to hospital with sepsis in this patient who did have a fever elevated white count source is likely right lower extremity cellulitis in this patient who did have a history of varicose veins venous stasis dermatitis likely from gram-positive skin livan such as strep less likely MRSA or gram-negative. 2patient with a penicillin allergy that will limit the number of antibiotics safe to use. 3patient with mild renal insufficiency high risk of nephrotoxicity from van comycin. 4we will obtain ultrasound of the right leg to make sure no evidence of any DVT. 5discontinue vancomycin. 6-we will start the patient cefazolin 2 g every 8 hours at the bedside question concern answered We will follow on clinical condition and cultures to further adjust medication if needed Thank you for this consultation we will follow the patient along with you Dictation was produced using [email or web address] ([employer]) dictation software. please excuse any grammatical, word or spelling errors. Time with Patient: Greater than 30
--- NOTE | 2023-11-26 13:48 | US ---
EXAMINATION TYPE: US venous doppler duplex LE RT DATE OF EXAM: 11/26/2023 12:59 PM COMPARISON: NONE CLINICAL INDICATION: Male, 73 years old with history of Right leg swelling rule out DVT; right leg ed mahamed for years SIDE PERFORMED: right TECHNIQUE: The lower extremity deep venous system is examined utilizing real time linear array sonog quyen with graded compression, doppler sonography and color-flow sonography. VESSELS IMAGED: Common Femoral Vein Deep Femoral Vein Greater Saphenous Vein * Femoral Vein Popliteal Vein Small Saphenous Vein * Proximal Calf Veins (* superficial vessels) Right Leg: no evidence of DVT as visualized IMPRESSION: Grayscale, color doppler, spectral doppler imaging performed of the deep veins of the lo wer extremities. There is normal flow, compressibility, vascular waveforms.
[2023-11-26] MEDS: ceFAZolin 3 GM in SODIUM CHLORIDE 0.9% 100 ML IVPB SCH (16:23)
[2023-11-26 16:43] LABS: African American GFR (CKD) 76 (>60 ml/min/1.73 sqM); Anion Gap 4 mmol/L; Blood Urea Nitrogen 28 mg/dL (9-20); Calcium 7.1 mg/dL (8.4-10.2); Carbon Dioxide 23 mmol/L (22-30); Chloride 113 mmol/L (98-107); Glucose 76 mg/dL (74-99); Non-African American GFR(CKD) 66 (>60 ml/min/1.73 sqM); Potassium 3.4 mmol/L (3.5-5.1); Sodium 140 mmol/L (137-145)
--- NOTE | 2023-11-26 18:09 | CA ---
Transthoracic Echo Report Name: Parveen Ortiz Age: 73 Gender: M : 1950 Exam Date: 11/26/2023 11:39 Exam Location: [place] [facility] Ht (in): 67 Wt (lb): 228 Ordering Physician: Noe Campbell MD Attending/Referring Phys: Plant Taxonomist Domitila Underwood RDCS Procedure CPT: Indications: atrial fib .htnurgency,tia Cardiac Hx: Technical Quality: Technically difficult study Contrast 1: Definity Total Dose (mL): 2 Contrast 2: Total Dose (mL): MEASUREMENTS (Male / Female) Normal Values 2D ECHO LV Diastolic Diameter PLAX 4.9 cm 4.2 - 5.9 / 3.9 - 5.3 cm LV Systolic Diameter PLAX 3.0 cm IVS Diastolic Thickness 1.0 cm 0.6 - 1.0 / 0.6 - 0.9 cm LVPW Diastolic Thickness 1.2 cm 0.6 - 1.0 / 0.6 - 0.9 cm LV Relative Wall Thickness 0.5 RV Internal Dim ED PLAX 4.1 cm LVOT Diameter 2.1 cm LA Volume 77.2 cm??? 18 - 58 / 22 - 52 cm??? LA Volume Index 34.3 cm???/m??? 16 - 28 cm???/m??? M-MODE Aortic Root Diameter MM 2.4 cm LA Systolic Diameter MM 5.1 cm LA Ao Ratio MM 2.1 AV Cusp Separation MM 1.9 cm DOPPLER AV Peak Velocity 189.6 cm/s AV Peak Gradient 14.4 mmHg AV Mean Velocity 135.4 cm/s AV Mean Gradient 8.1 mmHg AV Velocity Time Integral 41.4 cm LVOT Peak Velocity 139.2 cm/s LVOT Peak Gradient 7.8 mmHg LVOT Velocity Time Integral 27.6 cm LVOT Stroke Volume 96.7 cm??? LVOT Stroke Volume Index 45.2 ml/m??? LVOT Cardiac Index 2575.4 cm???/min???m??? AV Area Cont Eq vti 2.3 cm??? AV Area Cont Eq pk 2.6 cm??? MV Area PHT 2.4 cm??? Mitral E Point Velocity 81.3 cm/s Mitral A Point Velocity 48.9 cm/s Mitral E to A Ratio 1.7 MV Deceleration Time 316.8 ms MV E' Velocity 6.4 cm/s Mitral E to MV E' Ratio 12.7 TR Peak Velocity 331.1 cm/s TR Peak Gradient 43.9 mmHg Right Ventricular Systolic Press 46.5 mmHg FINDINGS Left Ventricle Left ventricular cavity size normal. Left ventricular wall thickness normal. No obvious regional wall motion abnormalities. Right Ventricle Moderate right ventricular dilatation. Moderate pulmonary hypertension. Right ventricular systolic pressure estimated at 47 mm hg. Right Atrium Catheter/pacemaker wire in the right atrial cavity. Left Atrium Moderately increased left atrial volume. Mildly increased left atrial area. Mitral Valve Structurally normal mitral valve. No mitral stenosis. Mitral valve thickened. Mild mitral annular calcification. [id number] mitral regurgitation. Aortic Valve No aortic valve stenosis or regurgitation. Tricuspid Valve Structurally normal tricuspid valve. [id number] tricuspid regurgitation. Pulmonic Valve Structurally normal pulmonic valve. Trace pulmonic regurgitation. Pericardium No pericardial effusion. Aorta Normal size aortic root and proximal ascending aorta. CONCLUSIONS Ventricular ejection fraction 50% RV enlargement with elevated RVSP Previewed by: Dr. Martín Martines MD (Electronically Signed) Final Date: 26 November 2023 18:09
--- NOTE | 2023-11-26 19:03 | NM ---
EXAMINATION TYPE: NM pul vent and perfuse DATE OF EXAM: 11/26/2023 CLINICAL INDICATION: Male, 73 years old with history of PE; COMPARISON: Chest radiograph 11/25/2023 TECHNIQUE: Utilizing inhalation of 68.4 mCi Tc 99m DTPA aerosol and intravenous injection of 5.2 mCi of Tc 99m MAA, ventilation and perfusion images are acquired post injection in multiple projections. FINDINGS: Normal radiotracer distribution is noted in the lungs. There is no evidence of mismatched defects. IMPRESSION: No evidence for PE
[2023-11-26] MEDS: WARFARIN 5 MG TAB PO ONE (19:51)
[2023-11-26 20:44] VITALS: RESP 16
--- NOTE | 2023-11-27 02:31 | P.CNPUL ---
History of Present Illness Consult date: 11/27/23 Requesting physician: Noe Campbell Reason for consult: dyspnea Chief complaint: Generalized weakness, chills History of present illness: Patient is a 73-year-old white male with past medical history significant for atrial fibrillation, permanent pacemaker, hypertension, obesity and previous bar iatric surgery, chronic lower extremity swelling, among other things. Patient presents the emergency room on 11/25/2023 with a chief complaint of generalized weakness and chills. He has had reduced appetite. More fatigued and sleeping more than normal. When he becomes chilled, he does become short of breath; otherwise, denies any pulmonary complaints. He denies any pre-existing lung disease. He does not smoke. Denies runny nose, sinus pressure, sore throat. Denies coughing, sputum production, chest pain, hemoptysis. Denies any nausea or vomiting, diarrhea, abdominal pain. Denies any urinary symptoms. He does report chronic lower extremity swelling. He did bump his right hernandes, and there are some superficial erythemic ulcerations. Not overly painful or hot to touch. On arrival to the emergency department, he was noted to be febrile with a Tmax of 102.3 F, blood pressure was hypotensive 79/49 mmHg, leukocytosis noted on CBC. No clear-cut source of infection has yet been identified. Chest x-ray does not show any acute cardiopulmonary process, there is blunting of the right costophrenic angle. No clear-cut infiltrates or evidence of pneumonia. He is currently resting in bed, on room air, in no acute distress. Not currently short of breath. No new complaints. CBC taken on arrival: WBC count 13.7, hemoglobin 11.5, hematocrit 35.2, platelets 224. CMP drawn on arrival: Sodium 140, potassium 3.6, chloride 108, serum bicarb 25, BUN 31, creatinine 1.28, glucose 98. Urinalysis unremarkable for infection. LFTs unremarkable. Total bilirubin 1.2. Lactic 1.3. Troponin 0.021. NT proBNP 4920. Normal saline is infusing at 130 MLS per hour. Follow-up creatinine is improved to 1.09. Venous Doppler does not show any evidence of right lower extremity DVT. VQ scan did not show any evidence of mismatch defect concerning for PE. Echocardiogram estimates a preserved left ventricular ejection fraction of 50% with RV enlargement and elevated RVSP of 47 mmHg. EKG consistent with sinus rhythm and LBBB. Preliminary blood cultures show no growth at 24 hours. Procalcitonin was elevated at 1.45. Negative for influenza, RSV, COVID. Hemodynamics are stable. Review of Systems REVIEW OF SYSTEMS: CONSTITUTIONAL: Denies any recent significant weight loss or weight gain. EYES: Denies change in vision. EARS, NOSE, MOUTH, THROAT: Denies headaches, denies sore throat. CARDIOVASCULAR: Denies chest pain, palpitations or syncopal episodes. RESPIRATORY: D see HPI GASTROINTESTINAL: Denies abdominal pain, nausea and vomiting, or diarrhea. Admits reduced appetite GENITOURINARY: Denies hematuria, denies infections. MUSKULOSKELETAL: Denies pain, denies swelling. INTEGUMENTARY: Denies rash, denies eczema. NEUROLOGICAL: Denies recent memory loss, no recent seizure activity. PSYCHIATRIC: Denies anxiety, denies depression. HEMATOLOGIC/LYMPHATIC: Denies anemia, denies enlarged lymph node Past Medical History Past Medical History: Atrial Fibrillation, GERD/Reflux, Hypertension, Osteoarthritis (OA), Renal Disease Additional Past Medical History / Comment(s): chronic swelling to bilat legs, varicose veins, positive cologuard, anemia History of Any Multi-Drug Resistant Organisms: None Reported Past Surgical History: Bariatric Surgery, Cholecystectomy, Ear Surgery, Joint Replacement, Orthopedic Surgery, Pacemaker Additional Past Surgical History / Comment(s): STATES HAD BILE DUCT LACERATED DURING CHOLECYSTECTOMY, eye surg. as a child, hx stomach stapling 1988, gastric bypass 10/2001, LOYD KNEES REPLACED, ORIF rt foot Past Anesthesia/Blood Transfusion Reactions: No Reported Reaction Type of Cardiac Device: Permanent Pacemaker Device Placement Date:: [employer], 06/2013 Past Psychological History: No Psychological Hx Reported Smoking Status: Never smoker Past Alcohol Use History: None Reported Past Drug Use History: None Reported - Past Family History Sister(s) Family Medical History: Cancer Mother Family Medical History: No Reported History Medications and Allergies Home Medications Medication Instructions Recorded Confirmed Type Atorvastatin [Lipitor] 20 mg PO HS 10/01/13 11/25/23 History Pantoprazole Sodium [Protonix] 40 mg PO AC-BRKFST 10/01/13 11/25/23 History Warfarin [Coumadin] 5 mg PO MOWETHSA@2100 10/01/13 11/25/23 History Metoprolol Succinate (ER) [Toprol 50 mg PO BID 11/07/16 11/25/23 History Xl] Furosemide [Lasix] 40 mg PO DAILY 11/25/23 11/25/23 History Latanoprost [Latanoprost 0.005%] 1 drop LEFT EYE HS 11/25/23 11/25/23 History Warfarin [Coumadin] 2.5 mg PO SUTUFR@2100 11/25/23 11/25/23 History Allergies Allergy/AdvReac Type Severity Reaction Status Date / Time Penicillins Allergy Rash/Hives Verified 11/25/23 16:01 Physical Exam Vitals: Vital Signs Temp Pulse Resp BP BP Pulse Ox 11/27/23 00:00 97.7 F 49 L 16 115/55 97 11/26/23 20:00 97.5 F L 50 L 16 124/68 98 11/26/23 15:32 97.6 F 63 18 110/57 93 L 11/26/23 12:35 97.7 F 51 L 18 137/78 96 11/26/23 08:00 97.7 F 52 L 18 104/67 98 11/26/23 03:20 97.6 F 63 18 96/48 97 Intake and Output 11/26/23 11/26/23 11/27/23 14:59 22:59 06:59 Intake Total 1960 128 Balance 1960 128 Intake: IV 10 Invasive Line 1 10 Intake, IV Titration 1600 Amount Sodium Chloride 0.9% 1, 1100 000 ml @ 130 mls/hr IV . Q7H42M SID Rx#:[id number] Vancomycin 1,750 mg In 500 Sodium Chloride 0.9% 500 ml 500 ml @ 167 mls/hr IVPB Q18H SID Rx#: [id number] Oral 360 118 Other: Voiding Method Toilet # Voids 2 GENERAL EXAM: Alert, 73-year-old obese white male, comfortable in no apparent distress. HEAD: Normocephalic and atraumatic EYES: Normal reaction of pupils, equal size. NOSE: Clear with pink turbinates. THROAT: No erythema or exudates. NECK: No masses, no JVD. CHEST: No chest wall deformity. LUNGS: Equal air entry with no crackles, wheeze, rhonchi or dullness. On room air. No conversational dyspnea or accessory muscle use.. CVS: S1 and S2 normal with soft systolic murmur, irregular rhythm. No other extra heart sounds ABDOMEN: No hepatosplenomegaly, active bowel sounds, no guarding or rigidity. SPINE: No scoliosis or deformity SKIN: Chronic venous stasis changes to bilateral lower extremities. Several superficial ulcerations/abrasions noted to right lower extremity CENTRAL NERVOUS SYSTEM: No focal deficits, tone is normal in all 4 extremities. EXTREMITIES: Bilateral lower extremity edema, 1-2+ pitting. No clubbing or cyanosis. Peripheral pulses are intact. Results - Laboratory Findings CBC and BMP: 11/25/23 11:44 11/26/23 16:03 PT/INR, D-dimer PT 25.1 sec (10.0-12.5) H 11/26/23 06:06 INR 2.5 (<1.2) H 11/26/23 06:06 Abnormal lab findings: Abnormal Labs 11/25/23 11/25/23 11/25/23 11:44 11:44 11:44 WBC 13.7 H RBC 3.62 L Hgb 11.5 L Hct 35.2 L Neutrophils # 12.8 H Lymphocytes # 0.4 L PT 30.5 H INR 3.1 H Potassium Chloride 108 H BUN 31 H Creatinine 1.28 H Calcium 7.3 L Total Protein 5.4 L Albumin 2.9 L Procalcitonin 11/25/23 11/26/23 11/26/23 17:14 06:06 06:06 WBC RBC Hgb Hct Neutrophils # Lymphocytes # PT 25.1 H INR 2.5 H Potassium Chloride BUN Creatinine 1.31 H Calcium Total Protein Albumin Procalcitonin 1.45 H 11/26/23 16:03 WBC RBC Hgb Hct Neutrophils # Lymphocytes # PT INR Potassium 3.4 L Chloride 113 H BUN 28 H Creatinine Calcium 7.1 L Total Protein Albumin Procalcitonin - Diagnostic Findings Chest x-ray: image reviewed Assessment and Plan Assessment: Acute febrile illness Suspect sepsis Acute dyspnea, secondary to above Acute leukocytosis Hypotension, improved with fluid resuscitation Acute kidney injury, secondary to hypotension and ATN Possible right lower extremity cellulitis Chronic venous insufficiency Permanent pacemaker History of atrial fibrillation, anticoagulated on warfarin History of hyperlipidemia Obesity, with a BMI of 37.5 kg/m Plan: Patient's medication, labs, imaging reviewed On room air He denies any current pulmonary complaints. Negative for influenza, RSV, COVID. Chest x-ray unremarkable for pneumonia. Infectious diseases involved and managing antibiotics Possible source of right lower extremity cellulitis is being considered Preliminary blood cultures are pending. Procalcitonin level elevated. Currently, hemodynamics are stable. I have personally seen and examined the patient, performed the documentation and the assessment and plan as written. Number of minutes spent on the visit:20 Time with Patient: Greater than 30
[2023-11-27 07:18] LABS: Basophils % (A) 0 %; Eosinophils # (A) 0.2 k/uL (0-0.7); Eosinophils % (A) 4 %; HCT 34.7 % (39.0-53.0); Hypochromasia Marked; Lymphocytes # (A) 0.6 k/uL (1.0-4.8); Lymphocytes % (A) 10 %; MCH 31.2 pg (25.0-35.0); MCHC 31.5 g/dL (31.0-37.0); Mean Platelet Volume 7.4; Monocytes # (A) 0.4 k/uL (0-1.0); Monocytes % (A) 7 %; Neutrophils # (A) 4.6 k/uL (1.3-7.7); Neutrophils % (A) 78 %; Platelet Count 219 k/uL (150-450); RBC 3.51 m/uL (4.30-5.90); RDW 14.5 % (11.5-15.5); WBC 5.9 k/uL (3.8-10.6)
[2023-11-27 07:23] LABS: INR 2.2 (<1.2); Prothrombin Time 22.1 sec (10.0-12.5)
[2023-11-27 08:24] LABS: African American GFR (CKD) 84 (>60 ml/min/1.73 sqM); Non-African American GFR(CKD) 73 (>60 ml/min/1.73 sqM)
--- NOTE | 2023-11-27 12:04 | P.PN ---
Subjective Progress Note Date: 11/27/23 Progress note Date of service 11/27/[address] Campbell Patient seen and evaluated [id number] and discussed with the patient Today his only complaint that he gained weight with the IV fluid and he used to be on Lasix and he felt that his leg is more heavier and we will be starting small dose of Lasix 20 mg with the underlying Pulmonary hypertension and echocardiogram came back with ejection fraction 50% and tricuspid regurg. No forethought note from cardiology. His proBNP was significantly elevated, VQ scan was negative, ultrasound of the lower extremities negative. Reviewed the consultation with Dr. Shaikh on the record. Will check on his potassium today and magnesium as well as tomorrow. DC his IV fluid 130 cc or and to be [place] discussed with Eun the RN taking care of the patient today Continue the antibiotic until seen by Dr. Newsome with the hope that changed to oral as his white count today was normal 5.9. Patient otherwise feeling better and will ambulate as tolerated Vital signs temperature 97.7 F oral and his heart rate 51 respiratory rate 16/min and blood pressure 120/67 with a mean 84 and oxygen saturation 99% on room air No for further chills or fever. On the exam: Head was normocephalic atraumatic, hearing is normal, oropharynx he has upper plate and lower partial, nose negative Pupil equal reactive no infection Neck was supple no JVD no thyromegaly no lymphadenopathy trachea midline Chest was clear to auscultation percussion no wheezes no rhonchi's Heart he had history of atrial fibrillation on Coumadin therapeutic and continued echocardiogram indicating ejection fraction 50% with the underlying pulmonary hypertension mild. Abdomen soft positive bowel sounds with multiple surgery Extremities varicose veins bilateral with the stasis dermatitis no evidence of DVT. Psychiatry stable Neurologically stable ambulatory. Assessment: 1. Underlying shortness of breath and chills and fever at home of unknown etiology. 2. Obesity stage II 3. Chronic atrial fibrillation and sick sinus syndrome with a pacemaker 4. Sinus bradycardia with left bundle branch block 5. Elevated procalcitonin with the elevated WBC and temperature on admission and admitted with sepsis. 6. Currently his chronic kidney disease stage III has been improved to stage II with improved creatinine and GFR. Negative urine analysis 7. Hypertension and hypertensive heart disease has been stable. 8. Hyperlipidemia 9. Chronic venous insufficiency with the varicose veins. 10. On anticoagulant. PTT 22.1 and INR 2.2 therapeutic. 11. Hypokalemia and hyper chloremia associated with the IV which she discontinued and we will be rechecking BMP And supplemented the potassium per protocol. Plan: Ambulate as tolerated 1. Recheck procalcitonin, CBC with differential, BMP, magnesium. In a.m. #2 if no further action from cardiology, pulmonary, infectious disease 3. Probably will obtain clearance and discharge home tomorrow if patient continues to be stable Objective - Vital Signs Vital signs: Vital Signs Temp 97.7 F 11/27/23 08:00 Pulse 51 L 11/27/23 08:00 Resp 16 11/27/23 08:00 BP 120/67 11/27/23 08:00 Pulse Ox 99 11/27/23 08:00 FiO2 Intake & Output 11/26/23 11/27/23 11/27/23 18:59 06:59 18:59 Intake Total 2078 10 118 Balance 2078 10 118 Weight 112.9 kg Intake: IV 10 Invasive Line 1 10 Intake, IV Titration 1600 Amount Sodium Chloride 0.9% 1, 1100 000 ml @ 130 mls/hr IV . Q7H42M SID Rx#:[id number] Vancomycin 1,750 mg In 500 Sodium Chloride 0.9% 500 ml 500 ml @ 167 mls/hr IVPB Q18H SID Rx#: [id number] Oral 478 118 Other: Voiding Method Toilet # Voids 1 - Labs CBC & Chem 7: 11/27/23 06:12 11/27/23 06:12 Labs: Abnormal Lab Results - Last 24 Hours (Table) 11/26/23 11/27/23 11/27/23 Range/Units 16:03 06:12 06:12 RBC 3.51 L (4.30-5.90) m/uL Hgb 11.0 L (13.0-17.5) gm/dL Hct 34.7 L (39.0-53.0) % Lymphocytes # 0.6 L (1.0-4.8) k/uL PT 22.1 H (10.0-12.5) sec INR 2.2 H (<1.2) Potassium 3.4 L (3.5-5.1) mmol/L Chloride 113 H (98-107) mmol/L BUN 28 H (9-20) mg/dL Calcium 7.1 L (8.4-10.2) mg/dL Microbiology - Last 24 Hours (Table) 11/25/23 12:35 Blood Culture - Preliminary Blood 11/25/23 12:20 Blood Culture - Preliminary Blood
[2023-11-27] MEDS: FUROSEMIDE 20 MG TAB PO SCH (12:11)
[2023-11-27] MEDS ORDERED: Potassium Replacement Protocol 1 EACH MISC MISCELLANE PRN ×2 (12:21→16:56)
[2023-11-27 12:38] LABS: African American GFR (CKD) 81 (>60 ml/min/1.73 sqM); Anion Gap 5 mmol/L; Blood Urea Nitrogen 23 mg/dL (9-20); Calcium 7.2 mg/dL (8.4-10.2); Carbon Dioxide 23 mmol/L (22-30); Chloride 114 mmol/L (98-107); Glucose 86 mg/dL (74-99); Magnesium 2.4 mg/dL (1.6-2.3); Non-African American GFR(CKD) 70 (>60 ml/min/1.73 sqM); Potassium 3.7 mmol/L (3.5-5.1); Sodium 142 mmol/L (137-145)
--- NOTE | 2023-11-27 15:27 | P.PN ---
Subjective Progress Note Date: 11/27/23 Principal diagnosis: Reason for follow-up is fever and right leg cellulitis Patient is a 73-year-old male with a past medical his significant for hypertension osteoarthritis reflux atrial fibrillation bilateral lower extremity varicose veins and venous stasis dermatitis presenting to the hospital for evaluation of fever and chills patient did have extensive workup including a negative UA chest x-ray noticed to have more swelling and warmth to the leg concerning for cellulitis. On today's evaluation that is 11/27/2023, Patient is afebrile patient is currently on room air and denies having any shortness of breath, the patient denies any chest pain or cough, the patient denies any nausea vomiting did not have any abdominal pain and no diarrhea. The patient white count is down to 5.9, creatinine is 1.04 blood cultures are pending Objective - Vital Signs Vital signs: Vital Signs Temp 97.7 F 11/27/23 08:00 Pulse 50 L 11/27/23 13:41 Resp 16 11/27/23 12:00 BP 153/83 11/27/23 12:00 Pulse Ox 99 11/27/23 12:00 FiO2 Intake & Output 11/26/23 11/27/23 11/27/23 18:59 06:59 18:59 Intake Total 2078 10 118 Balance 2078 10 118 Weight 112.9 kg Intake: IV 10 Invasive Line 1 10 Intake, IV Titration 1600 Amount Sodium Chloride 0.9% 1, 1100 000 ml @ 130 mls/hr IV . Q7H42M SID Rx#:[id number] Vancomycin 1,750 mg In 500 Sodium Chloride 0.9% 500 ml 500 ml @ 167 mls/hr IVPB Q18H SID Rx#: [id number] Oral 478 118 Other: Voiding Method Toilet # Voids 1 2 - Exam GENERAL DESCRIPTION: An elderly male lying in bed in no distress RESPIRATORY SYSTEM: Unlabored breathing , decreased breath sounds at bases HEART: S1 S2 regular rate and rhythm , ABDOMEN: Soft , no tenderness EXTREMITIES: Right leg did have swelling redness decreased - Labs CBC & Chem 7: 11/27/23 06:12 11/27/23 06:12 Labs: Abnormal Lab Results - Last 24 Hours (Table) 11/26/23 11/27/23 11/27/23 Range/Units 16:03 06:12 06:12 RBC 3.51 L (4.30-5.90) m/uL Hgb 11.0 L (13.0-17.5) gm/dL Hct 34.7 L (39.0-53.0) % Lymphocytes # 0.6 L (1.0-4.8) k/uL PT 22.1 H (10.0-12.5) sec INR 2.2 H (<1.2) Potassium 3.4 L (3.5-5.1) mmol/L Chloride 113 H (98-107) mmol/L BUN 28 H (9-20) mg/dL Calcium 7.1 L (8.4-10.2) mg/dL Magnesium (1.6-2.3) mg/dL 11/27/23 Range/Units 06:12 RBC (4.30-5.90) m/uL Hgb (13.0-17.5) gm/dL Hct (39.0-53.0) % Lymphocytes # (1.0-4.8) k/uL PT (10.0-12.5) sec INR (<1.2) Potassium (3.5-5.1) mmol/L Chloride 114 H (98-107) mmol/L BUN 23 H (9-20) mg/dL Calcium 7.2 L (8.4-10.2) mg/dL Magnesium 2.4 H (1.6-2.3) mg/dL Microbiology - Last 24 Hours (Table) 11/25/23 12:35 Blood Culture - Preliminary Blood 11/25/23 12:20 Blood Culture - Preliminary Blood Assessment and Plan (1) Sepsis Current Visit: Yes Status: Acute Code(s): A41.9 - SEPSIS, UNSPECIFIED ORGANISM SNOMED Code(s): 76293418 (2) Cellulitis of right leg Current Visit: Yes Status: Acute Code(s): L03.115 - CELLULITIS OF RIGHT LOWER LIMB SNOMED Code(s): 98327869300937002 (3) Penicillin allergy Current Visit: Yes Status: Acute Code(s): Z88.0 - ALLERGY STATUS TO P ENICILLIN SNOMED Code(s): 07429416 Plan: 1patient presented to hospital with sepsis in this patient who did have a fever elevated white count source is likely right lower extremity cellulitis in this patient who did have a history of varicose veins venous stasis dermatitis likely from gram-positive skin livan such as strep less likely MRSA or gram-negative. 2patient with a penicillin allergy that will limit the number of antibiotics safe to use. 3patient with mild renal insufficiency high risk of nephrotoxicity from vancomycin. 4 ultrasound of the right leg was negative any DVT. 5patient seem to have shown clinical improvement to continue with the cefazolin and will transition to oral Keflex on discharge will apply Alfonso wrap to the leg to get the swelling down Dictation was produced using [employer] dictation software. please excuse any grammatical, word or spelling errors. Time with Patient: Less than 30
[2023-11-27] MEDS: WARFARIN 3 MG TAB PO ONE (18:03)
[2023-11-27] MEDS: POTASSIUM CHLORIDE ER 20 MEQ TAB.ER PO SCH (18:03)
--- NOTE | 2023-11-27 21:31 | P.PN ---
Subjective Progress Note Date: 11/27/23 HISTORY OF PRESENTING ILLNESS 23-year-old male with past medical history of paroxysmal atrial fibrillation, left bundle branch block, permanent pacemaker previously known to Dr. Martines. Presented to the hospital because of concerns of fever and chills. On admission he had evidence of mild leukocytosis of WBC 13,000, low blood pressure 79/49, fever with temperature of 102. Patient urine did not show any signs of infection. Chest x-ray does not show any signs of pulmonary congestion. Creatinine is 1.3 which is slightly above the baseline of 1.0. His troponin was negative, BNP was elevated at 4000. His ECG showed sinus rhythm with left bundle branch block morphology. Patient denies any symptoms of chest pain chest pressure or shortness of breath. He reports that his fever chills and leg cramps have resolved. November 27, 2023 Patient is seen and examined at bedside this a.m. He is feeling much better. Blood pressure has returned back to baseline. Denies any chest pain chest pressure. Denies any fever chills symptoms. Denies any weakness. Appropriate urine output, PHYSICAL EXAMINATION Vital signs reviewed. Head: Normocephalic. Eyes: Sclerae nonicteric. Neck: Brisk carotid upstroke, no jugular venous distention. Lungs: Clear to auscultation. Heart: Irregular pulse,, S1-S2, no S3, systolic murmur appreciated Abdomen: Soft nontender, positive bowel sounds. Extremities: Chronic 2+ bilateral lower extremity edema with skin changes Neuro: Alert, oritented, no focal deficits. Detailed neuro exam was not performed. ASSESSMENT Paroxysmal atrial fibrillation, currently sinus rhythm S/p permanent pacemaker Chronic bilateral lower extremity swelling Moderate pulmonary hypertension with dilated RV Moderate mitral regurgitation and severe tricuspid regurgitation Moderate RV dilatation Fever and sepsis, resolved Echo showed EF of 50%, moderate RV dilatation, moderate biatrial dilatation, RVSP of 47 mmHg, severe tricuspid regurgitation, moderate mitral regurgitation PLAN He is on warfarin, metoprolol and Lasix at home. Agree with reduced dose of Lasix 20 mg daily and reduced dose of metoprolol 25 mg twice daily. Patient's pacemaker appears to be working fine with an RINA of 1 year. Patient has a severe tricuspid regurgitation and severe chronic bilateral lower extremity lymphedema. He would benefit from pneumatic compression device for bilateral lower extremity. He would benefit from getting evaluated for pulm hypertension and RV failure on outpatient basis Patient is cleared to be discharged from cardiovascular standpoint with recommended outpatient follow-up in cardiology clinic in the next 1 to 2 weeks and device clinic in next 3 to 6 months. Objective - Vital Signs Vital signs: Vital Signs Temp 97.7 F 11/27/23 08:00 Pulse 51 L 11/27/23 16:00 Resp 16 11/27/23 16:00 BP 152/91 11/27/23 16:00 Pulse Ox 100 11/27/23 16:00 FiO2 Intake & Output 11/27/23 11/27/23 11/28/23 06:59 18:59 06:59 Intake Total 10 558 Balance 10 558 Weight 112.9 kg Intake: IV 10 Invasive Line 1 10 Oral 558 Other: Voiding Method Toilet # Voids 1 2 - Labs CBC & Chem 7: 11/27/23 06:12 11/27/23 06:12 Labs: Abnormal Lab Results - Last 24 Hours (Table) 11/27/23 11/27/23 11/27/23 Range/Units 06:12 06:12 06:12 RBC 3.51 L (4.30-5.90) m/uL Hgb 11.0 L (13.0-17.5) gm/dL Hct 34.7 L (39.0-53.0) % Lymphocytes # 0.6 L (1.0-4.8) k/uL PT 22.1 H (10.0-12.5) sec INR 2.2 H (<1.2) Chloride 114 H (98-107) mmol/L BUN 23 H (9-20) mg/dL Calcium 7.2 L (8.4-10.2) mg/dL Magnesium 2.4 H (1.6-2.3) mg/dL Microbiology - Last 24 Hours (Table) 11/25/23 12:35 Blood Culture - Preliminary Blood 11/25/23 12:20 Blood Culture - Preliminary Blood
[2023-11-28 06:26] LABS: Basophils % (A) 1 %; Eosinophils # (A) 0.2 k/uL (0-0.7); Eosinophils % (A) 4 %; HCT 34.8 % (39.0-53.0); HGB 11.1 gm/dL (13.0-17.5); Hypochromasia Marked; Lymphocytes # (A) 0.6 k/uL (1.0-4.8); Lymphocytes % (A) 15 %; MCH 31.4 pg (25.0-35.0); MCHC 31.7 g/dL (31.0-37.0); MCV 98.9 fL (80.0-100.0); Mean Platelet Volume 7.7; Monocytes # (A) 0.3 k/uL (0-1.0); Monocytes % (A) 8 %; Neutrophils # (A) 2.9 k/uL (1.3-7.7); Neutrophils % (A) 71 %; Platelet Count 220 k/uL (150-450); RBC 3.52 m/uL (4.30-5.90); RDW 14.4 % (11.5-15.5); WBC 4.1 k/uL (3.8-10.6)
[2023-11-28 06:32] LABS: INR 2.8 (<1.2); Prothrombin Time 27.3 sec (10.0-12.5)
[2023-11-28 06:47] LABS: African American GFR (CKD) >90 (>60 ml/min/1.73 sqM); Anion Gap 4 mmol/L; Blood Urea Nitrogen 18 mg/dL (9-20); Calcium 7.5 mg/dL (8.4-10.2); Carbon Dioxide 23 mmol/L (22-30); Chloride 112 mmol/L (98-107); Glucose 92 mg/dL (74-99); Magnesium 2.4 mg/dL (1.6-2.3); Non-African American GFR(CKD) 84 (>60 ml/min/1.73 sqM); Sodium 139 mmol/L (137-145)
[2023-11-28] MEDS: METOPROLOL SUCCINATE (ER) 25 MG TAB.ER.24H PO SCH (08:48)
[2023-11-28] MEDS: FUROSEMIDE 20 MG TAB PO SCH (08:48)
[2023-11-28] MEDS ORDERED: FUROSEMIDE 20 MG TAB PO SCH (09:00)
[2023-11-28 12:06] VITALS: BP 151/67; PULSE 52; TEMP 98.1
--- NOTE | 2023-11-28 12:14 | P.PN ---
Subjective Progress Note Date: 11/28/23 Principal diagnosis: Reason for follow-up is fever and right leg cellulitis Patient is a 73-year-old male with a past medical his significant for hypertension osteoarthritis reflux atrial fibrillation bilateral lower extremity varicose veins and venous stasis dermatitis presenting to the hospital for evaluation of fever and chills patient did have extensive workup including a negative UA chest x-ray noticed to have more swelling and warmth to the leg concerning for cellulitis. On today's evaluation that is 11/28/2023, patient has been afebrile, patient is breathing comfortably and is currently on room air, patient denies having any significant cough no chest pain shortness of breath, patient denies nausea vomiting or diarrhea and no abdominal pain or pain to the right lower extremity. Patient white count is 4.1, creatinine 0.89 procalcitonin 0.53 blood culture has been negative Objective - Vital Signs Vital signs: Vital Signs Temp 97.7 F 11/28/23 08:00 Pulse 63 11/28/23 08:00 Resp 16 11/28/23 08:00 BP 120/73 11/28/23 08:00 Pulse Ox 100 11/28/23 08:00 FiO2 Intake & Output 11/27/23 11/28/23 11/28/23 18:59 06:59 18:59 Intake Total 558 Balance 558 Weight 114.8 kg Intake: Oral 558 Other: Voiding Method Toilet # Voids 2 1 - Exam GENERAL DESCRIPTION: An elderly male lying in bed in no distress RESPIRATORY SYSTEM: Unlabored breathing , decreased breath sounds at bases HEART: S1 S2 regular rate and rhythm , ABDOMEN: Soft , no tenderness EXTREMITIES: Right leg did have swelling redness decreased - Labs CBC & Chem 7: 11/28/23 05:29 11/28/23 05:29 Labs: Abnormal Lab Results - Last 24 Hours (Table) 11/27/23 11/28/23 11/28/23 Range/Units 06:12 05:29 05:29 RBC 3.52 L (4.30-5.90) m/uL Hgb 11.1 L (13.0-17.5) gm/dL Hct 34.8 L (39.0-53.0) % Lymphocytes # 0.6 L (1.0-4.8) k/uL PT (10.0-12.5) sec INR (<1.2) Chloride 114 H 112 H (98-107) mmol/L BUN 23 H (9-20) mg/dL Calcium 7.2 L 7.5 L (8.4-10.2) mg/dL Magnesium 2.4 H 2.4 H (1.6-2.3) mg/dL 11/28/23 Range/Units 05:29 RBC (4.30-5.90) m/uL Hgb (13.0-17.5) gm/dL Hct (39.0-53.0) % Lymphocytes # (1.0-4.8) k/uL PT 27.3 H (10.0-12.5) sec INR 2.8 H (<1.2) Chloride (98-107) mmol/L BUN (9-20) mg/dL Calcium (8.4-10.2) mg/dL Magnesium (1.6-2.3) mg/dL Microbiology - Last 24 Hours (Table) 11/25/23 12:35 Blood Culture - Preliminary Blood 11/25/23 12:20 Blood Culture - Preliminary Blood Assessment and Plan (1) Sepsis Current Visit: Yes Status: Acute Code(s): A41.9 - SEPSIS, UNSPECIFIED ORGANISM SNOMED Code(s): 20932705 (2) Cellulitis of right leg Current Visit: Yes Status: Acute Code(s): L03.115 - CELLULITIS OF RIGHT LOWER LIMB SNOMED Code(s): 93729147750920592 (3) Penicillin allergy Current Visit: Yes Status: Acute Code(s): Z88.0 - ALLERGY STATUS TO PENICILLIN SNOMED Code(s): 27995308 Plan: 1patient presented to hospital with sepsis in this patient who did have a fever elevated white count source is likely right lower extremity cellulitis in this patient who did have a history of varicose veins venous stasis dermatitis likely from gram-positive skin livan such as strep less likely MRSA or gram-negative. 2patient with a penicillin allergy that will limit the number of antibiotics safe to use. 3patient with mild renal insufficiency high risk of nephrotoxicity from vancomycin. 4 ultrasound of the right leg was negative any DVT. 5patient has shown clinical improvement resolution of his fever white count normal blood culture negative we will plan to finish therapy with oral Keflex prescription has been sent to the pharmacy Dictation was produced using [employer] software. please excuse any grammatical, word or spelling errors.
--- NOTE | 2023-11-28 13:40 | P.HPIM ---
History of Present Illness H&P Date: 11/28/23 Discharge summary Date of service 11/[address] Campbell. Final diagnosis Acute febrile illness Suspected sepsis Right leg cellulitis with significant edema and venous insufficiency Acute dyspnea Hypotension improved Acute kidney injury is recovered to normal function was in the range of chronic kidney disease stage III and now normalized. Pacemaker with the underlying history of sick sinus syndrome and atrial fibrillation chronic and paroxysmal Hyperlipidemia Obesity stage II. Elevated procalcitonin and leukocytosis. Tricuspid regurg and mild mitral regurg and pulmonary hypertension. With preserved ejection fraction. Elevated NT proBNP on admission 4920 secondary to right ventricular dilatation with pulmonary hypertension. Presentation at the emergency room Patient presented with chills and elevated temperature with shortness of breath. Hospital course Infectious disease consultation Pulmonary consultation Cardiology consultation. Investigation: Ultrasound of the lower extremities excluded DVT Echocardiogram indicating tricuspid regurg and mild mitral regurg and ejection fraction 50% Indicating pulmonary hypertension. COVID, influenza A and B, RSV negative. Blood culture was negative. Procalcitonin was elevated. Chest x-ray was negative. Coumadin therapy adjusted by the pharmacy. Antibiotic continued for 1 week was cephalexin 500 mg p.o. every [address] Tse infectious disease Exam on discharge Patient conscious alert oriented x 3 ambulatory. Vital signs stable Temperature 98.1 F oral Heart rate 52-63 with a chronic atrial fibrillation none symptoms Respiratory rate 16/min nonlabored blood pressure fluctuating with 120/73 with a mean 88-151/67 with a mean 95 Oxygen saturation 99% on room air Conscious alert oriented x 3 ambulatory and he had wrap on both lower extremities with Alfonso wrap Head was normocephalic atraumatic, normal hearing, oropharynx no evidence of infection, eat and swallow with no problem Neck was supple no JVD no thyromegaly no lymphadenopathy trachea midline Chest clear to auscultation percussion Heart atrial fibs with the paroxysmal atrial fibrillation. And currently sinus rhythm was left bundle branch block. Seen by cardiology Dr. Deleon. And cleared for discharge and pacemaker functioning. Abdomen soft positive bowel sounds with multiple bariatric surgery for obesity Extremities: Positive pulses, chronic edema 1+ with the Alfonso wrap bandage wrapping both legs with the underlying varicose veins extensive and stasis dermatitis of the lower leg bilateral and history of suspected cellulitis of the right lower leg. Assessment: And plan Patient stable general condition for discharge Cleared by pulmonary cardiology and infectious disease Patient discharged with cephalexin antibiotic 500 mg every 8 hour for 1 week duration Patient will be followed by his boat tester Dr. Martines Follow-up with Dr. Shaikh for pulmonary hypertension Follow-up with Dr. Campbell PCP next week. Patient can call the office next week and we will see him. Isrrael Garcia reviewed with [facility] [place] nurse as well as adjusted his medication a ccording to this admission. Neuro Current medication list: 1. Atorvastatin 20 mg nightly 2. Furosemide 20 mg daily in AM 3. Metoprolol succinate 25 mg daily 4. Pantoprazole 40 mg AC breakfast 5. Potassium replacement 10 mEq daily 6. Warfarin 2.5 mg once daily currently therapeutic PT and INR 7. Latanoprost ophthalmic 1 drop in the left eye at bedtime Past Medical History Past Medical History: Atrial Fibrillation, GERD/Reflux, Hypertension, Osteoart hritis (OA), Renal Disease Additional Past Medical History / Comment(s): chronic swelling to bilat legs, varicose veins, positive cologuard, anemia History of Any Multi-Drug Resistant Organisms: None Reported Past Surgical History: Bariatric Surgery, Cholecystectomy, Ear Surgery, Joint Replacement, Orthopedic Surgery, Pacemaker Additional Past Surgical History / Comment(s): STATES HAD BILE DUCT LACERATED DURING CHOLECYSTECTOMY, eye surg. as a child, hx stomach stapling 1988, gastric bypass 10/2001, LOYD KNEES REPLACED, ORIF rt foot Past Anesthesia/Blood Transfusion Reactions: No Reported Reaction Type of Cardiac Device: Permanent Pacemaker Device Placement Date:: BDA, 06/2013 Past Psychological History: No Psychological Hx Reported Smoking Status: Never smoker Past Alcohol Use History: None Reported Past Drug Use History: None Reported - Past Family History Sister(s) Family Medical History: Cancer Mother Family Medical History: No Reported History Medications and Allergies Home Medications Medication Instructions Recorded Confirmed Type Atorvastatin [Lipitor] 20 mg PO HS 10/01/13 11/25/23 History Pantoprazole Sodium [Protonix] 40 mg PO AC-BRKFST 10/01/13 11/25/23 History Cephalexin [Keflex] 500 mg PO Q8HR 7 Days #21 cap 11/28/23 Rx Furosemide [Lasix] 20 mg PO DAILY tab 11/28/23 Rx Metoprolol Succinate (ER) [Toprol 25 mg PO DAILY tab 11/28/23 Rx XL] Warfarin [Coumadin] 2.5 mg PO ONCE@2100 tab 11/28/23 Rx Allergies Allergy/AdvReac Type Severity Reaction Status Date / Time Penicillins Allergy Rash/Hives Verified 11/25/23 16:01 Physical Exam Vitals: Vital Signs Temp Pulse Resp BP Pulse Ox 11/28/23 12:00 98.1 F 52 L 16 151/67 99 11/28/23 08:00 97.7 F 63 16 120/73 100 11/28/23 04:00 97.7 F 54 L 16 131/62 100 11/28/23 01:23 16 11/28/23 00:00 56 L 16 151/69 99 11/27/23 20:00 98.1 F 58 L 16 145/65 100 11/27/23 16:00 51 L 16 152/91 100 11/27/23 13:41 50 L Intake and Output 11/27/23 11/28/23 11/28/23 22:59 06:59 14:59 Intake Total 440 360 Balance 440 360 Intake: Oral 440 360 Other: Voiding Method Toilet Toilet # Voids 1 1 Weight 114.8 kg Results CBC & Chem 7: 11/28/23 05:29 11/28/23 05:29 Labs: Abnormal Lab Results - Last 24 Hours (Table) 11/28/23 11/28/23 11/28/23 Range/Units 05:29 05:29 05:29 RBC 3.52 L (4.30-5.90) m/uL Hgb 11.1 L (13.0-17.5) gm/dL Hct 34.8 L (39.0-53.0) % Lymphocytes # 0.6 L (1.0-4.8) k/uL PT (10.0-12.5) sec INR (<1.2) Chloride 112 H (98-107) mmol/L Calcium 7.5 L (8.4-10.2) mg/dL Magnesium 2.4 H (1.6-2.3) mg/dL Procalcitonin 0.53 H (0.02-0.50) ng/mL 11/28/23 Range/Units 05:29 RBC (4.30-5.90) m/uL Hgb (13.0-17.5) gm/dL Hct (39.0-53.0) % Lymphocytes # (1.0-4.8) k/uL PT 27.3 H (10.0-12.5) sec INR 2.8 H (<1.2) Chloride (98-107) mmol/L Calcium (8.4-10.2) mg/dL Magnesium (1.6-2.3) mg/dL Procalcitonin (0.02-0.50) ng/mL Microbiology - Last 24 Hours (Table) 11/25/23 12:35 Blood Culture - Preliminary Blood 11/25/23 12:20 Blood Culture - Preliminary Blood Thrombosis Risk Factor Assmnt - Choose All That Apply Any of the Below Risk Factors Present?: Yes Each Factor Represents 1 point: Obesity (BMI >25) Each Risk Factor Represents 3 Points: Age 75 years or older Thrombosis Risk Factor Assessment Total Risk Factor Score: 4 Thrombosis Risk Factor Assessment Level: Moderate Risk
[2023-11-28] MEDS ORDERED: WARFARIN 2.5 MG TAB PO ONE (21:00)
== END 2023-11-28 13:37 | disposition home health service (06) | DRG 871 ==
LOC: EC 10:33 → 6NMEDSUR 14:01 → OBSVTOIN 14:02 → 6NMEDSUR 19:56 → 3SCARD 11-26 00:20
PROVIDERS: ADMIT Internal Medicine; ATTEND Internal Medicine
DX: A41.9 Sepsis, unspecified organism (principal); N17.0 Acute kidney failure with tubular necrosis; I48.21 Permanent atrial fibrillation; L03.115 Cellulitis of right lower limb; L03.116 Cellulitis of left lower limb; E66.01 Morbid (severe) obesity due to excess calories; E78.5 Hyperlipidemia, unspecified; I10 Essential (primary) hypertension; I83.90 Asymptomatic varicose veins of unspecified lower extremity; I87.2 Venous insufficiency (chronic) (peripheral); L30.9 Dermatitis, unspecified; Z68.39 Body mass index [BMI] 39.0-39.9, adult; K21.9 Gastro-esophageal reflux disease without esophagitis; E87.6 Hypokalemia; Z79.01 Long term (current) use of anticoagulants; E87.8 Other disorders of electrolyte and fluid balance, not elsewhere classified; R00.1 Bradycardia, unspecified; I44.7 Left bundle-branch block, unspecified; I08.1 Rheumatic disorders of both mitral and tricuspid valves; G89.29 Other chronic pain; I27.20 Pulmonary hypertension, unspecified; I49.5 Sick sinus syndrome; I83.93 Asymptomatic varicose veins of bilateral lower extremities; I95.9 Hypotension, unspecified; M19.90 Unspecified osteoarthritis, unspecified site; N18.30 Chronic kidney disease, stage 3 unspecified; Z68.37 Body mass index [BMI] 37.0-37.9, adult; Z98.84 Bariatric surgery status; Z79.899 Other long term (current) drug therapy; Z88.0 Allergy status to penicillin; Z95.0 Presence of cardiac pacemaker; Z90.49 Acquired absence of other specified parts of digestive tract; Z96.653 Presence of artificial knee joint, bilateral
CPT/HCPCS: 36415; 71046; 78582; 80048; 80053; 81003; 82565; 83605; 83735; 83880; 84145; 84484; 85025; 85610; 85730; 87040; 87636; 93005; 93306; 96361; 96365; 96366; 96367; 99285

== ENCOUNTER → 2024-03-19 | Outpatient (CLI) | payer MEDICARE ==
[2024-03-19 18:15] LABS: Basophils # (A) 0.05 X 10*3/uL (0.00-0.10); Basophils % (A) 0.5 %; Eosinophils # (A) 0.22 X 10*3/uL (0.04-0.35); Eosinophils % (A) 2.4 %; HCT 38.9 % (39.6-50.0); HGB 12.2 g/dL (13.0-17.0); Lymphocytes # (A) 0.89 X 10*3/uL (0.90-5.00); Lymphocytes % (A) 9.5 %; MCH 30.3 pg (27.0-32.0); MCHC 31.4 g/dL (32.0-37.0); MCV 96.8 FL (80.0-97.0); Mean Platelet Volume 9.7 FL (9.5-12.2); Monocytes # (A) 0.78 X 10*3/uL (0.20-1.00); Monocytes % (A) 8.4 %; NRBC Per 100 WBC 0 X 10*3/uL (0.00-0.01); Neutrophils # (A) 7.36 X 10*3/uL (1.80-7.70); Neutrophils % (A) 78.9 %; Platelet Count 209 X 10*3/uL (140-440); RBC 4.02 X 10*6/uL (4.40-5.60); RDW 14.6 % (11.5-14.5); WBC 9.33 X 10*3/uL (4.50-10.00)
[2024-03-19 19:20] LABS: Erythrocyte Sedimentation Rate 13 mm/Hr (0-20)
== END | disposition home or self-care (01) ==
LOC: LABWHC1 14:57
PROVIDERS: ATTEND Internal Medicine Clinical Cardiac Electrophysiology
DX: T82.7XXA Infection and inflammatory reaction due to other cardiac and vascular devices, implants and grafts, initial encounter (principal)
CPT/HCPCS: 36415; 85025; 85652; 86141; 87040

== ENCOUNTER 2024-04-04 10:08 | Day surgery (SDC) | payer MEDICARE ==
[~2024-04-04 10:08] MED LIST changes: +BENZOCAINE SPRAY 1 CAN TOPICAL PRN; -LACTATED RINGERS 1,000 ML IV SCH; +MIDAZOLAM 2 MG/2 ML VIAL IV PRN; +fentaNYL (PF) 50 MCG/ML 2 ML AMP IVP PRN
[2024-04-04 11:00] VITALS: TEMP 98
[2024-04-04 11:04] LABS: INR 3.5 (<1.2); Prothrombin Time 34.4 sec (10.0-12.5)
[2024-04-04] MEDS: SODIUM CHLORIDE 0.9% 500 ML 500 ML IV SCH (11:09)
[2024-04-04] MEDS: IV FLUID CONTINUATION 500 ML IV ONE (11:11)
[2024-04-04] MEDS: BENZOCAINE SPRAY 1 EACH MM ONE (12:01)
[2024-04-04] MEDS: fentaNYL (PF) 50 MCG/1 ML VIAL IVP ONE (12:06)
[2024-04-04] MEDS: MIDAZOLAM 2 MG/2 ML VIAL IVP ONE ×2 (12:06)
--- NOTE | 2024-04-04 12:27 | P.TEE ---
Date of Procedure: 04/04/24 Description of Procedure(s): Procedure performed: 1. Transesophageal Echocardiogram with color flow doppler, pulsed wave doppler and continuous wave doppler, (CPT 13404, +04733, +34515) 2. Moderate conscious sedation. Sedation time 8 mins. (CPT 17370) Indications: Rule out infective endocarditis. Pacemaker pocket infection Consent: I have discussed the risks, benefits and alternative therapies for the above-mentioned procedure. The patient has indicated understanding and acceptance of the risks of the procedure. Signed consent was obtained and was placed in the paper chart. Procedural Steps: Timeout was performed in usual fashion. Patient's heart rate, blood pressure, oxygen saturation and ECG were monitored. Benzocaine was sprayed liberally in the back of the throat. Bite block was placed between the jaw. 3 mg of Versed and 50 mcg of Fentanyl were administered intravenously. After achie ving appropriate moderate conscious sedation, LIDYA probe was advanced without difficulty and without any immediate complications to the esophagus. LIDYA study was performed with color flow doppler, pulsed wave doppler and continuous wave doppler. The probe was then removed. Patient tolerated the procedure well. Patient was transferred to the post procedure area in stable and satisfactory condition. Throughout the procedure patient's heart rate, blood pressure, oxygen saturation and ECG were monitored. Total sedation time 8 mins. Complications: none FINDINGS Left Atrium: Normal Left atrial size. No evidence of mass or thrombus seen Left Atrial Appendage: No evidence of thrombus or mass seen in PJ Inter atrial septum: Intact inter-atrial septum with no evidence of atrial septal defect. Left Ventricle: Normal global LV size and systolic function Right Atrium: Normal overall RA size. PPM wire noticed in RA with no evidence of vegetation. Right Ventricle: Normal global RV size and systolic function. PPM wire noticed an RV with no evidence of vegetation. Aortic Valve: Trileaflet, mild calcific sclerosis, Lambl's excrescence noticed however no evidence of vegetation. No significant regurgitation noticed. Mild aortic stenosis by color-flow Doppler. Mitral Valve: Structurally normal, no evidence of vegetation. No significant stenosis or regurgitation. Pulmonic Valve: Structurally normal, no evidence of vegetation, no evidence of significant stenosis or regurgitation. Tricuspid Valve: Mild tricuspid regurgitation. No evidence of vegetation. Ascending aorta, Aortic root and Aortic arch: Normal size aortic root and ascending aorta. Descending aorta: Mild intimal thickening. n CONCLUSION: No evidence of vegetation or infective endocarditis Mild aortic calcification and mild aortic stenosis. Lambl's excrescence noticed. No evidence of vegetation Normal global LV systolic function Normal chamber size overall. Carlos Deleon MD, RPVI, FACC Thank you for allowing [facility] to participate in this patient's care. Feel free to reach out in case of any followup questions.
[2024-04-04 12:31] VITALS: RESP 16
[2024-04-04 13:47] VITALS: BP 115/56; PULSE 57
== END 2024-04-04 13:41 | disposition home or self-care (01) ==
LOC: CATHCVL 10:08
PROVIDERS: ATTEND Student in an Organized Health Care Education/Training Program
DX: T82.7XXA Infection and inflammatory reaction due to other cardiac and vascular devices, implants and grafts, initial encounter (principal); I35.0 Nonrheumatic aortic (valve) stenosis; I70.0 Atherosclerosis of aorta; I07.1 Rheumatic tricuspid insufficiency; I10 Essential (primary) hypertension; E78.5 Hyperlipidemia, unspecified; I44.2 Atrioventricular block, complete; I48.19 Other persistent atrial fibrillation; Z79.899 Other long term (current) drug therapy; Z88.0 Allergy status to penicillin
CPT/HCPCS: 93312; 93320; 93325; 85610; J2250; J3010

== ENCOUNTER → 2024-09-16 | Outpatient (CLI) | payer MEDICARE ==
[2024-09-16 15:46] LABS: Blood Urea Nitrogen 34.4 mg/dL (9.0-27.0); Chloride 102 mmol/L (96-109); Potassium 3.5 mmol/L (3.5-5.5); Sodium 141 mmol/L (135-145)
[2024-09-16 16:15] LABS: HCT 38.7 % (39.6-50.0); HGB 11.9 g/dL (13.0-17.0); MCH 29.2 pg (27.0-32.0); MCHC 30.7 g/dL (32.0-37.0); MCV 95.1 FL (80.0-97.0); Mean Platelet Volume 9.8 FL (9.5-12.2); NRBC Per 100 WBC 0 X 10*3/uL (0.00-0.01); Platelet Count 248 X 10*3/uL (140-440); RBC 4.07 X 10*6/uL (4.40-5.60); RDW 15.1 % (11.5-14.5); WBC 6.44 X 10*3/uL (4.50-10.00)
== END | disposition home or self-care (01) ==
LOC: LABPAT 10:20
PROVIDERS: ATTEND Internal Medicine Clinical Cardiac Electrophysiology
DX: Z01.812 Encounter for preprocedural laboratory examination (principal); I44.2 Atrioventricular block, complete; I49.5 Sick sinus syndrome; Z95.0 Presence of cardiac pacemaker
CPT/HCPCS: 80051; 82565; 84520; 85027

== ENCOUNTER → 2024-11-18 | Outpatient (CLI) | payer MEDICARE ==
[2024-11-18 15:56] LABS: Basophils # (A) 0.04 X 10*3/uL (0.00-0.10); Basophils % (A) 0.7 %; Eosinophils # (A) 0.50 X 10*3/uL (0.04-0.35); Eosinophils % (A) 8.5 %; HCT 37.3 % (39.6-50.0); HGB 11.3 g/dL (13.0-17.0); Immature Grans, Automated 0.30 %; Lymphocytes # (A) 0.86 X 10*3/uL (0.90-5.00); Lymphocytes % (A) 14.6 %; MCH 29.2 pg (27.0-32.0); MCHC 30.3 g/dL (32.0-37.0); MCV 96.4 FL (80.0-97.0); Monocytes # (A) 0.59 X 10*3/uL (0.20-1.00); Monocytes % (A) 10.0 %; NRBC Per 100 WBC 0 X 10*3/uL (0.00-0.01); Neutrophils # (A) 3.87 X 10*3/uL (1.80-7.70); Neutrophils % (A) 65.9 %; Platelet Count 254 X 10*3/uL (140-440); RBC 3.87 X 10*6/uL (4.40-5.60); RDW 15.3 % (11.5-14.5); WBC 5.88 X 10*3/uL (4.50-10.00)
[2024-11-18 19:07] LABS: Creatine Kinase 74 U/L (35-257); Ferritin 99.6 ng/mL (22.0-322.0); Iron 38 UG/DL (65-175); Magnesium 2.7 mg/dL (1.5-2.4); Prostate Specific Antigen 0.59 ng/mL (0.000-6.500); Total Iron Binding Capacity 343 UG/DL (228-460); Triglycerides 60.60 mg/dL (0.00-149.00); Uric Acid 7.6 mg/dL (3.7-8.7); VLDL Calculation 12.12 mg/dL (5.00-40.00)
[2024-11-18 19:35] LABS: ALT 16 U/L (10-49); AST 19 U/L (14-35); Albumin 3.4 g/dL (3.8-4.9); Albumin/Globulin Ratio 1.48 Ratio (1.60-3.17); Alkaline Phosphatase 74 U/L (41-126); Anion Gap 13.30 mmol/L (4.00-12.00); BUN/Creat Ratio 19.08 Ratio (12.00-20.00); Blood Urea Nitrogen 24.8 mg/dL (9.0-27.0); Calcium 7.9 mg/dL (8.7-10.3); Carbon Dioxide 24.7 mmol/L (21.6-31.8); Chloride 106 mmol/L (96-109); Cholesterol 138.00 mg/dL (0.00-200.00); Globulin 2.3 g/dL (1.6-3.3); Glucose 106 mg/dL (70-110); HDL Cholesterol 50.20 mg/dL (40.00-60.00); LDL Cholesterol,Calculated 75.7 mg/dL (0.0-131.0); Potassium 4.3 mmol/L (3.5-5.5); Sodium 144 mmol/L (135-145); Total Protein 5.7 g/dL (6.2-8.2)
== END | disposition home or self-care (01) ==
LOC: LABWHC1 09:48
PROVIDERS: ATTEND Internal Medicine
DX: Z00.00 Encounter for general adult medical examination without abnormal findings (principal); I12.9 Hypertensive chronic kidney disease with stage 1 through stage 4 chronic kidney disease, or unspecified chronic kidney disease; E11.22 Type 2 diabetes mellitus with diabetic chronic kidney disease; N18.30 Chronic kidney disease, stage 3 unspecified; D63.1 Anemia in chronic kidney disease; I48.91 Unspecified atrial fibrillation; N40.0 Benign prostatic hyperplasia without lower urinary tract symptoms; E87.8 Other disorders of electrolyte and fluid balance, not elsewhere classified; E78.5 Hyperlipidemia, unspecified; E11.65 Type 2 diabetes mellitus with hyperglycemia; N20.0 Calculus of kidney; E55.9 Vitamin D deficiency, unspecified; E66.9 Obesity, unspecified
CPT/HCPCS: 36415; 80053; 80061; 82306; 82550; 82570; 82728; 83036; 83540; 83550; 83735; 83970; 84100; 84153; 84443; 84550; 85025; 85652; 86140